=== PATIENT | male | born 1955 | race African-American/Black ===

== ENCOUNTER 2022-11-02 06:07 | Inpatient (IN) ==
--- NOTE | 2022-10-27 16:00 | XRay Report ---
INDICATION: preop TECHNIQUE: PA and lateral upright chest x-ray COMPARISON: Previous chest x-rays dated 09/05/2022, 04/08/2022, 09/09/2019 FINDINGS: Elevated right hemidiaphragm is stable. Mild bibasilar parenchymal densities consistent with chronic scarring. No significant interval change since 09/09/2019 No acute parenchymal infiltrate. No evidence for pneumonia. Heart size and vascularity are normal. No pulmonary edema or pulmonary congestion IMPRESSION: 1. Mildly elevated right hemidiaphragm and bibasilar scarring 2. No acute abnormality 3. No interval change since 09/09/2019 Interpreted and Authenticated by: Gunner Saini 10/27/22
[2022-10-27 18:32] LABS: Basophils # (Auto) 0.06 K/mcL (0.00-0.30); Basophils % (Auto) 0.4 % (0.0-2.0); Eosinophils # (Auto) 0.35 K/mcL (0.00-0.70); Eosinophils % (Auto) 2.6 % (0.0-7.0); Hematocrit 44.7 % (40.1-51.0); Lymphocytes # (Auto) 2.12 K/mcL (1.50-4.80); Lymphocytes % (Auto) 15.8 % (15.5-49.0); Mean Cell Volume 83.6 fL (80.0-100.0); Mean Corpuscular HGB Conc 31.3 g/dL (31.0-36.0); Mean Platelet Volume 9.6 fL (8.8-12.5); Monocytes # (Auto) 1.03 K/mcL (0.10-0.90); Monocytes % (Auto) 7.7 % (1.0-12.0); Neutrophils % (Auto) 73.2 % (38.0-78.0); Platelet Count 393 K/mcL (140-440); RBC 5.35 M/mcL (4.63-6.08); Red Cell Distribution Width 12.6 % (11.5-14.5); WBC 13.5 K/mcL (4.5-11.0)
[2022-10-27 19:01] LABS: ALT/SGPT 9 U/L (<40); AST/SGOT 22 U/L (<40); Albumin 4.1 gm/dL (3.2-5.2); Alkaline Phosphatase 58 U/L (39-117); Bilirubin,Total 0.3 mg/dL (0.1-1.0); Blood Urea Nitrogen 20 mg/dL (8-23); Calcium 10.4 mg/dL (8.6-10.4); Carbon Dioxide 30 mmol/L (22-30); Chloride 95 mmol/L (96-108); Globulin 4.2 gm/dL (2.2-3.7); Glomerular Filtration Rate 96; Glucose 128 mg/dL (70-105); Thyroid Stimulating Hormone 2.16 uIU/mL (0.27-5.01)
[2022-10-27 19:03] LABS: Prealbumin 17.7 mg/dL (20.0-40.0)
[2022-10-27 19:31] LABS: Estimated Average Glucose(eAG) 200 mg/dL; Hemoglobin A1C 8.6 % Hgb (4.0-6.0)
--- NOTE | 2022-10-31 08:27 | EKG ---
[facility] Test Date: 2022-10-27 Pat Name: Adam Winkler Department: [facility] Room: Gender: Male [place]: : 1955 Requested By: Deep Lazar Order Number: [id number] Reading MD: Gunner Avila M.D. Measurements Intervals [place] Rate: 102 P: 44 [place]: 181 QRS: -23 QRSD: 83 T: 38 QT: 313 QTc: 408 Interpretive Statements Sinus tachycardia BORDERLINE ST ELEVATION, ANTERIOR LEADS Electronically Signed On 10-31-2022 8:26:50 PDT by Gunner Avila M.D. /store/[email or web address]/[id number]
[~2022-11-02 06:07] MED LIST: VANCOMYCIN 1,500 MG in 0.9 % SODIUM CHLORIDE 500 ML IV SCH; cefTRIAXone 1 GM VIAL IV SCH
[2022-11-02] MEDS ORDERED: LIDOCAINE HCL/PF 100 MG/5 ML SYRINGE IV ONE (07:55)
[2022-11-02] MEDS ORDERED: KETAMINE 50 MG/ML Syringe (ANEST) IV ONE (07:55)
[2022-11-02] MEDS ORDERED: ONDANSETRON 4 MG/2 ML VIAL ONE (07:55)
[2022-11-02] MEDS ORDERED: GLYCOPYRROLATE 0.2 MG/ML VIAL IV ONE (07:55)
[2022-11-02] MEDS ORDERED: PROPOFOL 200 MG/20 ML VIAL IV ONE (07:55)
[2022-11-02] MEDS ORDERED: MIDAZOLAM 2 MG/2 ML VIAL ONE (07:55)
[2022-11-02] MEDS ORDERED: LACTATED RINGERS 250 ML IV PRN (07:58)
[2022-11-02] MEDS ORDERED: ACETAMINOPHEN 120 MG SUPP.RECT PR ONE (07:58)
[2022-11-02] MEDS ORDERED: IPRATROPIUM/ALBUTEROL 3 ML AMPUL.NEB NEB PRN ×2 (07:58→15:41)
[2022-11-02] MEDS ORDERED: METOPROLOL TARTRATE 5 MG/5 ML VIAL IV PRN (07:58)
[2022-11-02] MEDS ORDERED: NALOXONE HCL 0.4 MG/ML VIAL IV PRN (07:58)
[2022-11-02] MEDS ORDERED: ONDANSETRON 4 MG/2 ML VIAL IV PRN ×2 (07:58→15:41)
[2022-11-02] MEDS ORDERED: fentaNYL 100 MCG/2 ML VIAL IV PRN (07:58)
[2022-11-02] MEDS ORDERED: LABETALOL 5 MG/ML ML IV PRN (07:58)
[2022-11-02] MEDS ORDERED: METHOCARBAMOL 1,000 MG/10 ML VIAL IV PRN (07:58)
[2022-11-02] MEDS ORDERED: GENTAMICIN SULFATE 800 MG/20 ML VIAL IR ONE (08:00)
[2022-11-02] MEDS ORDERED: LACTATED RINGERS 1,000 ML IV SCH (08:00)
--- NOTE | 2022-11-02 09:20 | General Surgery Procedure Note ---
Date of procedure: Note initiated : 11/02/22 at 9:08 am Service Date, if different from initiated Date: [] Pre-op diagnosis: DFU LEFT posterior heel Stage 4, DFU LEFT great toe dorsal Stage 4, Post-op diagnosis: same Procedure: Excision debridement pulse lavage irrigation of LEFT posterior heel and great toe wounds. Avulsed / non viable toenails 1 and 2 toes debrided. Findings: Stage 4 LEFT posterior heel wound up to bone. 10 x 8 x 3 CM Stage 4 LEFT proximal dorsal great toe up to tendon 4 x 3 x 1.5 CM Anesthesia: MAC Surgeon: Deep Lazar Estimated blood loss: 20 Pathology: other (BONE biopsy LEFT posterior calcaneum ? Osteomyelitis . Bone for c/s. Left 1st toe tendon for c/s.) Description of procedure: Excision debridement of LEFT great toe and toenails 1st and 2nd toe. Excision debridement of LEFT posterior heel, calcaneum Condition: stable Disposition: PACU
[2022-11-02] MEDS: oxyCODONE/APAP 5/325MG TABLET PO PRN ×2 (13:49→20:51)
--- NOTE | 2022-11-02 14:29 | Operative Note ---
DATE OF OPERATION: 11/02/2022 PREOPERATIVE DIAGNOSES: 1. Diabetic foot ulcer, left posterior heel, stage IV. 2. Diabetic foot ulcer, left dorsal great toe proximal to the nail bed, dorsal aspect. POSTOPERATIVE DIAGNOSES: 1. Diabetic foot ulcer, left posterior heel, stage IV. 2. Diabetic foot ulcer, left dorsal great toe proximal to the nail bed, dorsal aspect. PROCEDURE: 1. Excision debridement with pulse lavage irrigation of the left posterior heel wound, bone biopsy and bone sample for culture and sensitivity. 2. Excision debridement of the wound, left dorsal great toe. Soft tissue around the nail bed sent for culture and sensitivity. His deformed toenails left first and second toes were debrided. SURGEON: Deep Lazar M.D. ANESTHESIA: MAC. SENIOR CLINICAL SAS PROGRAMMER: Elias Pacheco, CARBIDE OPERATOR student, and associate. ESTIMATED BLOOD LOSS: 20 mL. COUNTS: Count of swabs, instruments, and needles was reported to be correct. CONDITION: Operation was well tolerated. INDICATIONS FOR SURGERY: This is a 67-year-old gentleman with multiple comorbidities and a chronically-infected diabetic foot ulcer of left posterior heel and great toe dorsal aspect. After initial conservative management and failed outpatient treatment, he is now taken to the operating room for surgical debridement, deep tissue samples biopsies, and cultures. . PROCEDURE NOTE IN DETAIL: After obtaining informed consent, he was taken to the OR and anesthetized uneventfully in supine position using intravenous analgesics, anesthetics and nasopharyngeal airway. After successful induction of anesthesia, the left foot, ankle, leg were widely cleaned, prepped, and draped in the standard fashion. The hip was flexed at 80 degrees and the elevated leg and calf was supported by calf and leg rest. First, the posterior heel necrotic tissue and devitalized skin edges were sharply excised with pickup and Vides scissors. The deep wound over the calcaneal tuberosity was now explored and debrided with #7 sharp curette. This led to the underlying tuberosity of the bone. This was palpated and we used a bone biopsy needle to obtain specimens for bone biopsy to rule out osteomyelitis and additional specimens were obtained for culture and sensitivity. The wounds were copiously irrigated and washed with pulse lavage system using 3 liters of normal saline mixed with 50,000 units of bacitracin, 600 mg of clindamycin and 80 mg of gentamicin. After the debridement of posterior heel wound, the wound on the greater toe was sharply debrided and tissue samples were obtained for culture and sensitivity. Devitalized, fragmented, demarcated toenail was excised. Similarly, the demarcated, devitalized toenail of the second toe was also excised. Wounds were copiously irrigated, and dressings consisted of Xeroform gauze, Betadine gauze packing retained in place with 4 x 4 gauze, ABD pad, Kerlix bandage, Coban, and Kevin, respectively. Estimated blood loss was about 20 mL. Count of swabs, instruments and needles reported to be correct. Operation was well tolerated. I spoke with the patient's , Maki, telephone number [phone]. Updated her of patient's intraoperative findings and plan of care. He will be admitted to the med/surg floor for extended recovery to monitor the wound sites and for any postoperative bleeding. VD:angie Job ID: [id number] Doc ID: [id number] Deep Lazar MD MTDD
--- NOTE | 2022-11-02 15:40 | Internal Med History&Physical ---
HPI History of Present Illness Patient information: Note initiated : 11/02/22 at 3:32 pm Service Date, if different from initiated Date: [] Patient: Adam Winkler a 67 y/o M admitted on for surgical Debridement, Pulse Lavage Irrigation, . Chief Complaint: [] History of present illness: Mr. Winkler is a 67 year old M Presents today after surgical debridement of left diabetic foot wound/ulcer stage IV and left great toe. This patient is been following up in wound care with Dewey Fuentes for about a year and presented today for Dr. Lazar to do a debridement and bone culture as it is felt he has osteomyelitis. Dr. Lazar requested admission for further IV antibiotics for osteomyelitis. Patient denies fevers or chills. Pain updated labs. Patient has history of diabetes with neuropathy history of stroke chronic pain. He was recently started on oxygen at night and has felt that he probably has obstructive sleep apnea but he has not had a special sleep study yet. He wears 2 L of oxygen at night only not during the day. Review of Systems: Pertinent positives as above. Denies headache/fever/chills/nausea/vomiting/chest or abdominal pain/cough/dyspnea/diarrhea. Remaining 10 point review system reviewed negative PHYSICAL EXAM General: Alert, Awake, No acute Distress Eyes/N/T: EOMI, no scleral icterus, PERRL, Head/Neck: neck supple, full ROM, normocephalic atraumatic CV: RRR, No murmurs, normal s1/s2 Pulm: Clear b/l, no wheezing/rhonchi/rales, no respiratory distress Abd: soft, nontender, +BS x4 Ext: no clubbing/cyanosis/edema, left foot in dressings Neuro: Alert, no focal deficits, moves all extremities, CN 2-12 grossly intact, sensations intact b/l upper/lower Psychiatric: Skin: warm/dry, normal color PFSH PFSH All Active Problems (Updated 04/21/22 @ 10:35 by Harper Pedraza) CVA (cerebral vascular accident) (Chronic) Hematuria (Chronic) TIA (transient ischemic attack) (Chronic) Dysuria (Chronic) Edema leg (Chronic) Diabetic neuropathy (Chronic) Diabetic foot (Chronic) Epidural fibrosis (Chronic) Chronic prescription opiate use (Chronic) Arachnoiditis (Chronic) Radiculopathy, lumbosacral region (Chronic) Radiculopathy of lumbar region (Chronic) Lumbar pain with radiation down both legs (Chronic) Intractable neuropathic pain of lumbosacral origin (Chronic) Type 2 diabetes mellitus without complications (Chronic) Other bacterial meningitis (Chronic) Chronic meningitis (Chronic) Chronic pain (Chronic) Other chronic pain (Chronic) Breakdown (mechanical) of implanted electronic neurostimulator, generator, initial encounter (Chronic) Medical History (Updated 04/21/22 @ 10:35 by Harper Pedraza) Arachnoiditis Breakdown (mechanical) of implanted electronic neurostimulator, generator, initial encounter Chronic meningitis Chronic pain With Intrathecal Pump in Place Chronic prescription opiate use CVA (cerebral vascular accident) Diabetic foot Diabetic neuropathy Dysuria Edema leg Epidural fibrosis Hematuria Intractable neuropathic pain of lumbosacral origin Lumbar pain with radiation down both legs Other bacterial meningitis Other chronic pain Radiculopathy of lumbar region Radiculopathy, lumbosacral region TIA (transient ischemic attack) Type 2 diabetes mellitus without complications Surgical History History of surgery Implant / replace [employer] pump w/sed 09/10/2019 Family History Unknown No pertinent family history Social History smoking status: Current every day smoker MEDS/ALLERGIES Home Medications and Allergies Home Medications Medication Instructions Recorded Confirmed Type insulin glargine 100 unit/mL 50 unit subcut BID 04/14/20 11/02/22 History subcutaneous solution (Lantus U-100 Insulin) metformin 1,000 mg tablet 500 mg PO BID 04/14/20 11/02/22 History clopidogrel 75 mg tablet (Plavix) 75 mg PO QDAY 09/20/21 11/02/22 History cetirizine 10 mg tablet (Aller-Bhavesh) 20 mg PO HS 04/08/22 11/02/22 History pravastatin 20 mg tablet 20 mg PO QDAY 04/08/22 11/02/22 History naloxone 4 mg/actuation nasal 4 mg intranasal Q2M #2 ea 06/02/22 11/02/22 Rx spray (Narcan) tapentadol 50 mg tablet (Nucynta) 50 - 100 mg PO Q4H PRN pain #220 08/10/22 11/02/22 Rx tabs aspirin 81 mg tablet,delayed 81 mg PO QDAY 10/27/22 11/02/22 History release docusate sodium 100 mg capsule 100 mg PO QDAY 10/27/22 11/02/22 History Allergies Allergy/AdvReac Type Severity Reaction Status Date / Time aspirin AdvReac Mild Gastrointestinal Verified 11/02/22 06:27 Upset diazepam [From Valium] AdvReac Mild Combative, Verified 11/02/22 06:27 Hallucinations lorazepam [From Ativan] AdvReac Mild Confusion Verified 11/02/22 06:27 and Agitation Varenicline [From Chantix] AdvReac Mild Confusion Verified 11/02/22 06:27 and Agitation EXAM Constitutional Vitals: Temp Pulse Resp BP Pulse Ox O2 Del Method O2 Flow Rate 97.2 F 103 H 10 L 138/88 87 L Room Air, Nasal Cannula 2 11/02/22 09:25 11/02/22 09:25 11/02/22 09:25 11/02/22 09:25 11/02/22 09:47 11/02/22 09:47 11/02/22 09:47 A/P Narrative A/P Narrative: A: *Left heel diabetic wound/osteomyelitis: *DM w/neuropathy: -a1c *h/o CVA: on asa/plavix *HLD: *Chronic pain: Follows with pain clinic * P: -IV Rocephin/Vanco, mrsa screen (+) -pending surgical cultures -check 's -Dr. Davis for wound care -Check CBC and chemistry panel -cont asa/plavix/statin -ssi -check a1c -pt/ot -CM for placement needs -ppx: lovenox Time Spent With Patient Time: Total time spent is greater than 50% in coordination of care (as documented) at patient's floor/unit and/or counseling patient: Initial: Total time with patient: 55 - 74 minutes
[2022-11-02] MEDS ORDERED: DEXTROSE 31 GM ORAL.SUSP PO PRN (15:41)
[2022-11-02] MEDS ORDERED: DEXTROSE 50% 50 ML VIAL IV PRN (15:41)
[2022-11-02] MEDS ORDERED: SENNOSIDES 1 TABLET PO PRN (15:41)
[2022-11-02] MEDS ORDERED: POTASSIUM CHLORIDE 40 MEQ in DEXTROSE 5% IN WATER 500 ML IV PRN (15:41)
[2022-11-02] MEDS ORDERED: ACETAMINOPHEN 325 MG TABLET PO PRN (15:41)
[2022-11-02] MEDS ORDERED: POLYETHYLENE GLYCOL 3350 17 GM PACKET PO PRN (15:41)
[2022-11-02] MEDS ORDERED: POTASSIUM CHLORIDE 20 MEQ TABLET PO PRN ×2 (15:41)
[2022-11-02] MEDS ORDERED: MAGNESIUM SULFATE 2 GM/50 ML BAG IV PRN (15:41)
[2022-11-02] MEDS ORDERED: VANCOMYCIN PER PHARMACY IV SCH (15:41)
[2022-11-02] MEDS ORDERED: cefTRIAXone 2 GM in DEXTROSE 5% IN WATER 50 ML IV SCH (15:45)
[2022-11-02] MEDS ORDERED: cefTRIAXone 1 GM VIAL IV SCH (16:00)
--- NOTE | 2022-11-02 16:40 | General Surgery Progress Note ---
SUBJECTIVE Subjective Patient information: Note initiated : 11/02/22 at 4:27 pm Service Date, if different from initiated Date: [] Patient: Adam Winkler 67 y/o M admitted on 11/02/22 for surgical Debridement, Pulse Lavage Irrigation, . Chief Complaint: [] Additional PMFSH (Level 3 Only): Examined patient after surgery. Checked for post opbleeding. Constitutional Vitals: Vital Signs Temp Pulse Resp BP Pulse Ox O2 Del Method O2 Flow Rate 97.2 F 103 H 10 L 138/88 87 L Room Air, Nasal Cannula 2 11/02/22 09:25 11/02/22 09:25 11/02/22 09:25 11/02/22 09:25 11/02/22 09:47 11/02/22 09:47 11/02/22 09:47 Period Temp Pulse Resp BP Sys/Castaneda Pulse Ox O2 Del Method O2 Flow Rate Last 24 Hr 97.0 F-97.3 F 98-104 10-18 124-154/54-94 87-98 Nasal Cannula- Room Air, Nasal Cannula 0-2 Intake and Output 11/02/22 11/02/22 11/02/22 03:59 11:59 19:59 Intake Total 180 Output Total 360 Balance -180 Weight 220 lb Patient Weight 11/03/22 03:59 Weight 220 lb Intake & Output: Intake & Output 11/02/22 11/02/22 11/02/22 03:59 11:59 19:59 Intake Total 180 Output Total 360 Balance -180 Weight 220 lb Intake: Oral 180 Output: Void Amount 360 Exam: Recovered well from anesthesia and surgery. Dressings of LEFT foot and heel are dry and clean. Patient has stage 4 PU Left posterior heel / great toe. Wound extends to bone of heel and tendon of great toe. CLINICAL diagnosis. Acute osteomyelitis of heel. CSSSI heel and toe. He is at risk for LEFT BKA amputation. NEEDS coordinated care for comorbidities Infectious Diseases Consult . Await Bone biopsy and cultures. A/P Narrative A/P Narrative: Assessment: LEFT posterior heel . ACUTE osteomyelitis. At risk for BKA LEFT great toe DFU Stage 4 Multiple comorbidities. NEEDS Infectious Diseases Consult PICC line IV antibiotics per ID. Discussed patient's situation at length with Blanca RN, Cherelle sales team member Met with patient and his Maki in person. Plan of Treatment: Plan: Change status to FULL admission. Transfer care under Hospitalist Physician. Dr. Mccarty. I will follow patient along with Hospitalist for wound care. Time Spent With Patient Time: Total time spent is greater than 50% in coordination of care (as documented) at patient's floor/unit and/or counseling patient: Subsequent: Total time with patient: Greater than or equal to 65 minutes
[2022-11-02 16:42] LABS: Erythrocyte Sedimentation Rate 96 mm/hr (0-20)
[2022-11-02 16:45] LABS: Basophils # (Auto) 0.04 K/mcL (0.00-0.30); Basophils % (Auto) 0.3 % (0.0-2.0); Eosinophils # (Auto) 0.56 K/mcL (0.00-0.70); Eosinophils % (Auto) 4.8 % (0.0-7.0); Hematocrit 43.8 % (40.1-51.0); Hemoglobin 13.5 g/dL (13.7-17.5); Lymphocytes # (Auto) 1.05 K/mcL (1.50-4.80); Lymphocytes % (Auto) 8.9 % (15.5-49.0); Mean Cell Volume 84.6 fL (80.0-100.0); Mean Corpuscular HGB Conc 30.8 g/dL (31.0-36.0); Mean Platelet Volume 9.6 fL (8.8-12.5); Monocytes # (Auto) 0.89 K/mcL (0.10-0.90); Monocytes % (Auto) 7.6 % (1.0-12.0); Neutrophils % (Auto) 78.1 % (38.0-78.0); Platelet Count 378 K/mcL (140-440); RBC 5.18 M/mcL (4.63-6.08); Red Cell Distribution Width 12.7 % (11.5-14.5); WBC 11.8 K/mcL (4.5-11.0)
[2022-11-02] MEDS: INSULIN LISPRO 1 UNIT/0.01 ML UNIT SQ SCH ×2 (16:59→20:53)
[2022-11-02 17:17] LABS: ALT/SGPT 13 U/L (<40); AST/SGOT 21 U/L (<40); Albumin 3.3 gm/dL (3.2-5.2); Albumin/Globulin Ratio 0.8 (1.0-2.3); Alkaline Phosphatase 58 U/L (39-117); Bilirubin,Direct < 0.2 mg/dL (0-0.3); Bilirubin,Total 0.3 mg/dL (0.1-1.0); Blood Urea Nitrogen 19 mg/dL (8-23); Calcium 9.1 mg/dL (8.6-10.4); Carbon Dioxide 27 mmol/L (22-30); Chloride 97 mmol/L (96-108); Globulin 4.2 gm/dL (2.2-3.7); Glomerular Filtration Rate 91; Glucose 236 mg/dL (70-105); Lactate Dehydrogenase 183 U/L (135-225); Phosphorous 3.7 mg/dL (2.5-4.5); Triglycerides 177 mg/dL (<150); Uric Acid 6.4 mg/dL (2.5-8.0)
[2022-11-02 17:38] LABS: Estimated Average Glucose(eAG) 171 mg/dL; Hemoglobin A1C 7.6 % Hgb (4.0-6.0)
[2022-11-02] MEDS: DOCUSATE SODIUM 100 MG CAPSULE PO SCH (20:51)
[2022-11-02] MEDS: VANCOMYCIN 1,500 MG in 0.9 % SODIUM CHLORIDE 500 ML IV SCH (20:52)
[2022-11-02] MEDS: INSULIN GLARGINE, HUMAN 1 UNIT/0.01 ML SQ SCH (20:54)
[2022-11-02] MEDS: 0.9 % SODIUM CHLORIDE 10 ML SYRINGE IV SCH (20:55)
[2022-11-03] MEDS: morphine 4 MG/ML VIAL IV PRN ×3 (02:52→20:00)
[2022-11-03] MEDS: 0.9 % SODIUM CHLORIDE 10 ML SYRINGE IV SCH ×3 (05:54→21:02)
[2022-11-03 06:17] LABS: Basophils # (Auto) 0.06 K/mcL (0.00-0.30); Basophils % (Auto) 0.6 % (0.0-2.0); Eosinophils # (Auto) 0.79 K/mcL (0.00-0.70); Eosinophils % (Auto) 7.4 % (0.0-7.0); Hemoglobin 12.1 g/dL (13.7-17.5); Lymphocytes % (Auto) 13.2 % (15.5-49.0); Mean Cell Volume 83.7 fL (80.0-100.0); Mean Corpuscular HGB Conc 31.8 g/dL (31.0-36.0); Mean Platelet Volume 9.9 fL (8.8-12.5); Monocytes # (Auto) 0.86 K/mcL (0.10-0.90); Monocytes % (Auto) 8.1 % (1.0-12.0); Neutrophils % (Auto) 70.4 % (38.0-78.0); Platelet Count 362 K/mcL (140-440); RBC 4.54 M/mcL (4.63-6.08); Red Cell Distribution Width 12.7 % (11.5-14.5); WBC 10.6 K/mcL (4.5-11.0)
[2022-11-03 06:46] LABS: ALT/SGPT 11 U/L (<40); AST/SGOT 19 U/L (<40); Albumin 3.1 gm/dL (3.2-5.2); Albumin/Globulin Ratio 0.9 (1.0-2.3); Alkaline Phosphatase 50 U/L (39-117); Bilirubin,Direct < 0.2 mg/dL (0-0.3); Bilirubin,Total 0.2 mg/dL (0.1-1.0); Blood Urea Nitrogen 17 mg/dL (8-23); Calcium 8.6 mg/dL (8.6-10.4); Carbon Dioxide 29 mmol/L (22-30); Chloride 98 mmol/L (96-108); Globulin 3.5 gm/dL (2.2-3.7); Glomerular Filtration Rate 96; Glucose 189 mg/dL (70-105); Lactate Dehydrogenase 176 U/L (135-225); Phosphorous 3.2 mg/dL (2.5-4.5); Triglycerides 156 mg/dL (<150); Uric Acid 6.7 mg/dL (2.5-8.0)
[2022-11-03] MEDS: INSULIN LISPRO 1 UNIT/0.01 ML UNIT SQ SCH ×4 (07:41→21:02)
--- NOTE | 2022-11-03 08:20 | Internal Med Progress Note ---
SUBJECTIVE Subjective Patient information: Note initiated : 11/03/22 at 8:17 am Service Date, if different from initiated Date: [] Patient: Adam Winkler 67 y/o M admitted on 11/02/22 for surgical Debridement, Pulse Lavage Irrigation, . Chief Complaint: [] Interval history: History of present illness: Mr. Winkler is a 67 year old M Presents today after surgical debridement of left diabetic foot wound/ulcer stage IV and left great toe. This patient is been following up in wound care with Dewey Fuentes for about a year and presented today for Dr. Lazar to do a debridement and bone culture as it is felt he has osteomyelitis. Dr. Lazar requested admission for further IV antibiotics for osteomyelitis. Patient denies fevers or chills. Pain updated labs. Patient has history of diabetes with neuropathy history of stroke chronic pain. He was recently started on oxygen at night and has felt that he probably has obstructive sleep apnea but he has not had a special sleep study yet. He wears 2 L of oxygen at night only not during the day. 11/03 No overnight event or new complaints. Leukocytosis improving. Anemia present. Significantly elevated ESR 96. Dr. Davis said the wound went down to the bone. Review of Systems: Pertinent positives as above. Denies headache/fever/chills/nausea/vomiting/chest or abdominal pain/coug h/dyspnea/diarrhea. PHYSICAL EXAM General: Alert, Awake, No acute Distress Eyes/N/T: EOMI, no scleral icterus, Head/Neck: neck supple, full ROM, CV: RRR, No murmurs, Pulm: Clear b/l, no wheezing/rhonchi/rales, no respiratory distress Abd: soft, nontender, +BS x4 Ext: no clubbing/cyanosis/edema, left foot in dressings Neuro: Alert, no focal deficits, moves all extremities, , sensations intact b/l upper/lower Psychiatric: Skin: warm/dry, normal color Constitutional Vitals: Vital Signs Temp Pulse Resp BP Pulse Ox O2 Del Method O2 Flow Rate 98.4 F 95 H 18 151/87 94 Nasal Cannula 2 11/03/22 07:11 11/03/22 07:11 11/03/22 07:11 11/03/22 07:11 11/03/22 07:11 11/03/22 07:11 11/03/22 07:11 Period Temp Pulse Resp BP Sys/Castaneda Pulse Ox O2 Del Method O2 Flow Rate Last 24 Hr 97.2 F-99.3 F 85-104 10-18 119-154/68-94 87-98 Nasal Cannula- Room Air, Nasal Cannula 0-2 Intake and Output 11/02/22 11/03/22 11/03/22 19:59 03:59 11:59 Intake Total 420 1240 Output Total 660 300 Balance -240 940 Weight 100.743 kg Intake & Output: Intake & Output 11/02/22 11/03/22 11/03/22 19:59 03:59 11:59 Intake Total 420 1240 Output Total 660 300 Balance -240 940 Weight 100.743 kg Intake: IV 1000 Vancomycin 1,500 mg In Sodium 1000 Chloride 0.9% 500 ml @ 333.3 mls/hr IV PREOP [facility]INGO Rx#: [id number] Oral 420 240 Output: Void Amount 660 300 Other: Urine Appearance Clear Urine Color Yellow Urine Odor Normal # Voids 1 OBJ DATA Labs 11/03/22 05:09 11/03/22 05:09 Labs: Abnormal Lab Results 11/03/22 11/03/22 11/02/22 05:09 05:09 16:03 WBC RBC 4.54 L Hgb 12.1 L Hct 38.0 L MCHC Neut % (Auto) Lymph % (Auto) 13.2 L Eos % (Auto) 7.4 H Lymph # (Auto) 1.40 L Eos # (Auto) 0.79 H Absolute Neutrophils ESR Anion Gap 7.0 L Glucose 189 H 236 H Hemoglobin A1c 7.6 H C-Reactive Protein 4.80 H Albumin 3.1 L Globulin 4.2 H Albumin/Globulin Ratio 0.9 L 0.8 L Triglycerides 156 H 177 H 11/02/22 16:03 WBC 11.8 H RBC Hgb 13.5 L Hct MCHC 30.8 L Neut % (Auto) 78.1 H Lymph % (Auto) 8.9 L Eos % (Auto) Lymph # (Auto) 1.05 L Eos # (Auto) Absolute Neutrophils 9.20 H ESR 96 H Anion Gap Glucose Hemoglobin A1c C-Reactive Protein Albumin Globulin Albumin/Globulin Ratio Triglycerides Meds: Medications Acetaminophen (Acetaminophen 325 Mg Tablet) 650 mg PO Q6HP PRN; Protocol PRN Reason: Per Pain Protocol/Fever > 101 Albuterol/Ipratropium (Ipratropium/Albuterol 3 Ml Ampul.Neb) 3 ml NEB Q4HP PRN PRN Reason: Shortness Of Breath Aspirin (Aspirin 81 Mg Tab.Chew) 81 mg PO DAILY [facility] Atorvastatin Calcium (Atorvastatin 10 Mg Tablet) 5 mg PO DAILY [facility] Clopidogrel Bisulfate (Clopidogrel 75 Mg Tablet) 75 mg PO QDAY [facility] Dextrose (Dextrose 50% 50 Ml Vial) 0 ml IV UD PRN PRN Reason: Per Sliding Scale Diagnostic Test (Pha) (Accu-Chek 1 Each Strip) 1 each FS ACHS [facility] Last Admin: 11/03/22 07:40 Dose: 1 each Docusate Sodium (Docusate Sodium 100 Mg Capsule) 100 mg PO BID [facility] Last Admin: 11/02/22 20:51 Dose: 100 mg Enoxaparin Sodium (Enoxaparin 40 Mg/0.4 Ml Syringe) 40 mg SQ DAILY [facility] Glucose (Dextrose 31 Gm Oral.Susp) 15 gm PO PRN PRN PRN Reason: Hypoglycemia Potassium Chloride 40 meq/ (Dextrose) 520 mls @ 130 mls/hr IV UD PRN PRN Reason: Potassium < 3 Magnesium Sulfate (Magnesium Sulfate) 2 gm in 50 mls @ 50 mls/hr IV UD PRN PRN Reason: Magnesium </= 1.6 Ceftriaxone Sodium 2 gm/ (Dextrose) 50 mls @ 100 mls/hr IV Q24H [facility]; Protocol Vancomycin HCl 1,500 mg/ (Sodium Chloride) 500 mls @ 333.3 mls/hr IV Q12H [facility] Last Infusion: 11/02/22 23:11 Dose: Infused Insulin Glargine (Insulin Glargine, Human 1 Unit/0.01 Ml) 50 unit SQ BID [facility] Last Admin: 11/02/22 20:54 Dose: 50 units Insulin Human Lispro (Insulin Lispro 1 Unit/0.01 Ml Unit) 0 unit SQ ACHS [facility]; Protocol Last Admin: 11/03/22 07:41 Dose: 4 units Morphine Sulfate (Morphine 4 Mg/Ml Vial) 0 mg IV Q3HP PRN PRN Reason: Pain Last Admin: 11/03/22 02:52 Dose: 2 mg Ondansetron HCl (Ondansetron 4 Mg/2 Ml Vial) 4 mg IV Q4HP PRN PRN Reason: Nausea And Vomiting Oxycodone/Acetaminophen (Oxycodone/Apap 5/325mg Tablet) 1 - 2 tab PO Q6HP PRN; Protocol PRN Reason: Per Pain Protocol Last Admin: 11/02/22 20:51 Dose: 2 tab Polyethylene Glycol (Polyethylene Glycol 3350 17 Gm Packet) 17 gm PO DAILYP PRN PRN Reason: Constipation Potassium Chloride (Potassium Chloride 20 Meq Tablet) 40 meq PO UD PRN PRN Reason: Potssium is 3-3.5 Potassium Chloride (Potassium Chloride 20 Meq Tablet) 40 meq PO UD PRN PRN Reason: Potassium < 3 Senna (Sennosides 1 Tablet) 2 tab PO DAILYP PRN PRN Reason: Constipation Sodium Chloride (0.9 % Sodium Chloride 10 Ml Syringe) 10 ml IV Q8 [facility] Last Admin: 11/03/22 05:54 Dose: 10 ml Vancomycin HCl (Vancomycin Per Pharmacy) 1 order IV UD [facility]; Protocol A/P Narrative A/P Narrative: A: *Left heel diabetic wound/osteomyelitis: s/p surgical debridement and bone biopsy (11/02) -leukocytosis improved *DM w/neuropathy: -a1c 7.6 *h/o CVA: on asa/plavix *HLD: *Chronic pain: Follows with pain clinic *Anemia: P: -IV Rocephin/Vanco, mrsa screen (+), -pending surgical cultures and BC -ID consult for osteo -Dr. Young for wound care -cont asa/plavix/statin -ssi -pt/ot -CM for placement needs -ppx: lovenox Plan of Treatment: Plan: Change status to FULL admission. Transfer care under Hospitalist Physician. Dr. Mccarty. I will follow patient along with Hospitalist for wound care. Time Spent With Patient Time: Total time spent is greater than 50% in coordination of care (as documented) at patient's floor/unit and/or counseling patient: Subsequent: Total time with patient: 35 - 49 minutes QUALITY VTE Deep Vein Thrombosis/Pulmonary Embolism Present on Admission: No
[2022-11-03] MEDS: ASPIRIN 81 MG TAB.CHEW PO SCH (08:41)
[2022-11-03] MEDS: CLOPIDOGREL 75 MG TABLET PO SCH (08:41)
[2022-11-03] MEDS: ATORVASTATIN 10 MG TABLET PO SCH (08:41)
[2022-11-03] MEDS: DOCUSATE SODIUM 100 MG CAPSULE PO SCH ×2 (08:42→21:02)
[2022-11-03] MEDS: INSULIN GLARGINE, HUMAN 1 UNIT/0.01 ML SQ SCH ×2 (08:42→21:01)
[2022-11-03] MEDS: ENOXAPARIN 40 MG/0.4 ML SYRINGE SQ SCH (08:42)
[2022-11-03] MEDS: cefTRIAXone 2 GM in DEXTROSE 5% IN WATER 50 ML IV SCH (08:42)
[2022-11-03] MEDS: VANCOMYCIN 1,500 MG in 0.9 % SODIUM CHLORIDE 500 ML IV SCH ×2 (09:50→21:44)
[2022-11-03] MEDS: GENTAMICIN SULFATE 40 MG, CLINDAMYCIN 300 MG in SODIUM CHLORIDE IRRIG SOLUTION 500 ML IRR SCH (11:00)
--- NOTE | 2022-11-03 15:44 | General Surgery Progress Note ---
SUBJECTIVE Subjective Patient information: Note initiated : 11/03/22 at 3:37 pm Service Date, if different from initiated Date: [] Patient: Adam Winkler 67 y/o M admitted on 11/02/22 for surgical Debridement, Pulse Lavage Irrigation, . Chief Complaint: [] Additional PMFSH (Level 3 Only): Saw patient earlier this morning on rounds with Connie Goodwin box car loader Nurse Business Development Sales Executive. Patient feeling better sitting up by edge of bed. Constitutional Vitals: Vital Signs Temp Pulse Resp BP Pulse Ox O2 Del Method O2 Flow Rate 98.4 F 96 H 18 142/89 90 Room Air 2 11/03/22 12:00 11/03/22 12:00 11/03/22 12:00 11/03/22 12:00 11/03/22 12:00 11/03/22 12:00 11/03/22 07:11 Period Temp Pulse Resp BP Sys/Castaneda Pulse Ox O2 Del Method O2 Flow Rate Last 24 Hr 98.4 F-99.3 F 94-103 18-18 119-151/68-89 90-97 Nasal Cannula- Room Air 2-2 Intake and Output 11/03/22 11/03/22 11/03/22 03:59 11:59 19:59 Intake Total 1240 550 240 Output Total 300 Balance 940 550 240 Intake & Output: Intake & Output 11/03/22 11/03/22 11/03/22 03:59 11:59 19:59 Intake Total 1240 550 240 Output Total 300 Balance 940 550 240 Intake: IV 1000 550 Vancomycin 1,500 mg In Sodium 1000 500 Chloride 0.9% 500 ml @ 333.3 mls/hr IV Q12H [facility] Rx#: [id number] Rocephin 2 gm In Dextrose 5% in 50 Water 50 ml @ 100 mls/hr IV Q24H [facility] Rx#:[id number] Oral 240 240 Output: Void Amount 300 Other: Meal Breakfast Percent of Meal Consumed 75% Urine Appearance Clear Urine Color Yellow Urine Odor Normal # Voids 1 Exam: AVSS. No changes VIKY. Lab results reviewed. LEFT leg wound care plan discussed with nursing staff. Written orders of wound care and dressings were reviewed. Biopsy and Culture reports are pending. A/P Narrative A/P Narrative: Assessment: Progressing well after surgery. LEFT posterior heel Stage 4 wound (Bone) LEFT dorsal 1st toe wound Stage 4 (tendon). Plan of Treatment: Plan: Await culture and Biopsy results. Await Infectious Diseases consult. MIST treatment with VASHE. Later GCB dressings. NWB Left leg and foot. Change status to FULL admission. Transfer care under Hospitalist Physician. Dr. Mccarty. I will follow patient along with Hospitalist for wound care. Time Spent With Patient Time: Total time spent is greater than 50% in coordination of care (as documented) at patient's floor/unit and/or counseling patient: Initial: Total time with patient: Less than 40 minutes
--- NOTE | 2022-11-03 16:21 | Infectious Disease Consult ---
Telemedicine Intake Start Time: 04:30 (PM PST ) End Time: 05:10 Consent for assessment and treatment to occur via virtual technology obtained from: Patient Location of Provider: Other ([place] ) Patient location: Med/Surg Unit HPI Date of Consult Consult Date: 11/03/22 Requesting physician: Santiago Mccarty Primary Care Provider: Jeferson Nassar Consult Narrative Patient Information: Note initiated : 11/03/22 at 4:20 pm Service Date, if different from initiated Date: [] This is a 67-year-old male past medical history DMT2, HTN, CVA admitted on 11/02 due to chronic left foot diabetic ulcer in the heel and great toe after undergoing debridement by software specialist. As per patient he has had a chronic left foot wound for the past year since treated several times with different courses of antibiotics. Most recent treatment was approximately 1.5 months ago he cannot recall the name of the antibiotics, but in chart review tamica garcia was seen at urgent care back in 07/21 and was treated with doxycycline and Augmentin. As per chart, he had MRSA and Pseudomonas in wound. Upon admission, pt was afebrile (t 99.3F), tachycardic (103bpm), rest of vital signs stable. On labs, patient had mild leukocytosis (11.8K > preadmission 13k), increased inflammatory markers (CRP 4.80, ESR 96). Preliminary wound cx results gram stain no wbcs, many to rare gpc, and few gnb. Patient now started on IV vancomycin plus ceftriaxone, bone biopsy and bone culture are currently pending. Now consulted to ID service for further recommendations. Denies fever, chills, malaise, nausea, vomit, diarrhea, dizziness, LOC. Chief complaint: nonhealing wound, OM cc:: CC: Deep Lazar MD Constitutional Constitutional: Present as per HPI EENT Eyes: Present as per HPI Musculoskeletal Musculoskeletal: Present as per HPI Integumentary Integumentary: Present wounds (nonhealing left heel and great toe wounds for 1 year) PFSH PFSH All Active Problems (Updated 11/03/22 @ 17:02 by Nany Diaz MD) Decubitus ulcer of left foot, stage 4 (Acute) CVA (cerebral vascular accident) (Chronic) Hematuria (Chronic) TIA (transient ischemic attack) (Chronic) Dysuria (Chronic) Edema leg (Chronic) Diabetic neuropathy (Chronic) Diabetic foot (Chronic) Epidural fibrosis (Chronic) Chronic prescription opiate use (Chronic) Arachnoiditis (Chronic) Radiculopathy, lumbosacral region (Chronic) Radiculopathy of lumbar region (Chronic) Lumbar pain with radiation down both legs (Chronic) Intractable neuropathic pain of lumbosacral origin (Chronic) Type 2 diabetes mellitus without complications (Chronic) Other bacterial meningitis (Chronic) Chronic meningitis (Chronic) Chronic pain (Chronic) Other chronic pain (Chronic) Breakdown (mechanical) of implanted electronic neurostimulator, generator, initial encounter (Chronic) Medical History (Updated 11/03/22 @ 17:02 by Nany Diaz MD) Arachnoiditis Breakdown (mechanical) of implanted electronic neurostimulator, generator, initial encounter Chronic meningitis Chronic pain With Intrathecal Pump in Place Chronic prescription opiate use CVA (cerebral vascular accident) Diabetic foot Diabetic neuropathy Dysuria Edema leg Epidural fibrosis Hematuria Intractable neuropathic pain of lumbosacral origin Lumbar pain with radiation down both legs Other bacterial meningitis Other chronic pain Radiculopathy of lumbar region Radiculopathy, lumbosacral region TIA (transient ischemic attack) Type 2 diabetes mellitus without complications Surgical History History of surgery Implant / replace [employer] pump w/sed 09/10/2019 Family History Unknown No pertinent family history Social History smoking status: Current every day smoker MEDS/ALLERGIES Home Medications and Allergies Home Medications Medication Instructions Recorded Confirmed Type insulin glargine 100 unit/mL 50 unit subcut BID 04/14/20 11/02/22 History subcutaneous solution (Lantus U-100 Insulin) metformin 1,000 mg tablet 500 mg PO BID 04/14/20 11/02/22 History clopidogrel 75 mg tablet (Plavix) 75 mg PO QDAY 09/20/21 11/02/22 History cetirizine 10 mg tablet (Aller-Bhavesh) 20 mg PO HS 04/08/22 11/02/22 History pravastatin 20 mg tablet 20 mg PO QDAY 04/08/22 11/02/22 History naloxone 4 mg/actuation nasal 4 mg intranasal Q2M #2 ea 06/02/22 11/02/22 Rx spray (Narcan) tapentadol 50 mg tablet (Nucynta) 50 - 100 mg PO Q4H PRN pain #220 08/10/22 11/02/22 Rx tabs aspirin 81 mg tablet,delayed 81 mg PO QDAY 10/27/22 11/02/22 History release docusate sodium 100 mg capsule 100 mg PO QDAY 10/27/22 11/02/22 History Allergies Allergy/AdvReac Type Severity Reaction Status Date / Time aspirin AdvReac Mild Gastrointestinal Verified 11/02/22 06:27 Upset diazepam [From Valium] AdvReac Mild Combative, Verified 11/02/22 06:27 Hallucinations lorazepam [From Ativan] AdvReac Mild Confusion Verified 11/02/22 06:27 and Agitation Varenicline [From Chantix] AdvReac Mild Confusion Verified 11/02/22 06:27 and Agitation Physical Examination Vital Signs Vital signs: Temp Pulse Resp BP Pulse Ox O2 Del Method O2 Flow Rate 98.8 F 98 H 18 105/68 94 Room Air 2 11/03/22 15:46 11/03/22 15:46 11/03/22 15:46 11/03/22 15:46 11/03/22 15:46 11/03/22 15:46 11/03/22 07:11 Constitutional General appearance: no acute distress and alert EENT Eyes pulmonary: nonicteric ENT: oropharynx moist Neck: supple Respiratory Effort: normal Gastrointestinal Gastrointestinal: soft and non-tender Extremities Extremities: other (left foot bandaged) Neurologic Neurological: normal mental status Psychiatric Psychiatric: mood appropriate and affect normal Results Laboratory Findings 11/03/22 05:09 11/03/22 05:09 Abnormal lab findings: Abnormal Labs 10/27/22 10/27/22 10/27/22 15:21 15:21 15:21 WBC 13.5 H RBC Hgb Hct MCHC Neut % (Auto) Lymph % (Auto) Eos % (Auto) Lymph # (Auto) [place] # (Auto) 1.03 H Eos # (Auto) Absolute Neutrophils 9.85 H ESR APTT 37.9 H Chloride 95 L Anion Gap Glucose 128 H Hemoglobin A1c 8.6 H C-Reactive Protein 4.70 H Albumin Globulin 4.2 H Albumin/Globulin Ratio Prealbumin 17.7 L Triglycerides Procalcitonin 10/27/22 11/02/22 11/02/22 15:21 16:03 16:03 WBC 11.8 H RBC Hgb 13.5 L Hct MCHC 30.8 L Neut % (Auto) 78.1 H Lymph % (Auto) 8.9 L Eos % (Auto) Lymph # (Auto) 1.05 L [place] # (Auto) Eos # (Auto) Absolute Neutrophils 9.20 H ESR 96 H APTT Chloride Anion Gap Glucose 236 H Hemoglobin A1c 7.6 H C-Reactive Protein 4.80 H Albumin Globulin 4.2 H Albumin/Globulin Ratio 0.8 L Prealbumin Triglycerides 177 H Procalcitonin 0.11 H 11/03/22 11/03/22 05:09 05:09 WBC RBC 4.54 L Hgb 12.1 L Hct 38.0 L MCHC Neut % (Auto) Lymph % (Auto) 13.2 L Eos % (Auto) 7.4 H Lymph # (Auto) 1.40 L [place] # (Auto) Eos # (Auto) 0.79 H Absolute Neutrophils ESR APTT Chloride Anion Gap 7.0 L Glucose 189 H Hemoglobin A1c C-Reactive Protein Albumin 3.1 L Globulin Albumin/Globulin Ratio 0.9 L Prealbumin Triglycerides 156 H Procalcitonin Microbiology: Microbiology 11/02/22 08:45 Toe - First Gram Stain - Preliminary 11/02/22 08:45 Toe - First Tissue Culture - Final 11/02/22 08:40 Bone - Left Gram Stain - Preliminary 11/02/22 08:40 Bone - Left Tissue Culture - Final 11/02/22 16:04 Blood Blood Culture - Preliminary 11/02/22 16:03 Blood Blood Culture - Preliminary 11/02/22 08:40 Bone Anaerobic Culture - Final 11/02/22 08:40 Bone Wound Culture - Final 11/02/22 08:45 Bone Anaerobic Culture - Final 11/02/22 08:45 Bone Wound Culture - Final 10/27/22 15:22 Nose MRSA (PCR) - Final A/P Assessment and plan (1) Decubitus ulcer of left foot, stage 4: Assessment and plan: This is a 67 y/o male pmhx DMT2, HTN, CVA admitted on 11/02 due to chronic left foot diabetic ulcer in the heel and great toe for 1 yea after undergoing debridement by software specialist. Prelim wound cx gram stain no wbcs, many to rare gpc, and few gnb. Plan: - agree with Vancomycin 1500mg IV q12hrs for now, monitor vanco trough 30mins before 4th dose - agree with Ceftriaxone 2g IV daily for now - follow up OR bone cx - follow up OR bone path - will tailor therapy based on results - follow up BCx results; if no growth at 48hrs please place PICC line - discussed with patient [place] [facility] IV therapy of 6 weeks based and tailoring of antibiotic therapy based on results - please contact me when patient gets change in wound dressing to assess the foot - ID will follow up for further recommendations Status: Acute Time Spent With Patient Time: Total time spent is greater than 50% in coordination of care (as documented) at patient's floor/unit and/or counseling patient: Initial: Total time with patient: 40 - 54 minutes Total Critical Care Time: 40 (mins ) Attestation: Nany Diaz MD [phone]
[2022-11-03] MEDS: MUPIROCIN OINT 2% 22GM NARES SCH (21:01)
[2022-11-04] MEDS: morphine 4 MG/ML VIAL IV PRN ×5 (02:24→20:16)
[2022-11-04] MEDS: 0.9 % SODIUM CHLORIDE 10 ML SYRINGE IV SCH ×5 (06:15→22:23)
--- NOTE | 2022-11-04 07:33 | Internal Med Progress Note ---
SUBJECTIVE Subjective Patient information: Note initiated : 11/04/22 at 7:32 am Service Date, if different from initiated Date: [] Patient: Adam Winkler 67 y/o M admitted on 11/02/22 for surgical Debridement, Pulse Lavage Irrigation, . Chief Complaint: [] Interval history: History of present illness: Mr. Winkler is a 67 year old M Presents today after surgical debridement of left diabetic foot wound/ulcer stage IV and left great toe. This patient is been following up in wound care with [facility] Fuentes for about a year and presented today for Dr. Lazar to do a debridement and bone culture as it is felt he has osteomyelitis. Dr. Lazar requested admission for further IV antibiotics for osteomyelitis. Patient denies fevers or chills. Pain updated labs. Patient has history of diabetes with neuropathy history of stroke chronic pain. He was recently started on oxygen at night and has felt that he probably has obstructive sleep apnea but he has not had a special sleep study yet. He wears 2 L of oxygen at night only not during the day. 11/03 No overnight event or new complaints. Leukocytosis improving. Anemia present. Significantly elevated ESR 96. Dr. Davis said the wound went down to the bone. 11/04 Patient feeling well today. No overnight event or new complaints. Awaiting surgical wound and bone cultures. ID following and continue current antibiotics until cultures resulted. Review of Systems: Pertinent positives as above. Denies headache/fever/chills/nausea/vomiting/chest or abdominal pain/cough/dyspnea/d iarrhea. PHYSICAL EXAM General: Alert, Awake, No acute Distress Eyes/N/T: EOMI, no scleral icterus, Head/Neck: neck supple, full ROM, CV: RRR, No murmurs, Pulm: Clear b/l, no wheezing/rhonchi/rales, no respiratory distress Abd: soft, nontender, +BS x4 Ext: no clubbing/cyanosis/edema, left foot in dressings Neuro: Alert, no focal deficits, moves all extremities, , sensations intact b/l upper/lower Psychiatric: Skin: warm/dry, normal color Constitutional Vitals: Vital Signs Temp Pulse Resp BP Pulse Ox O2 Del Method O2 Flow Rate 98.8 F 88 18 129/73 96 Nasal Cannula 2 11/04/22 03:57 11/04/22 03:57 11/04/22 03:57 11/04/22 03:57 11/04/22 03:57 11/04/22 03:57 11/04/22 03:57 Period Temp Pulse Resp BP Sys/Castaneda Pulse Ox O2 Del Method O2 Flow Rate Last 24 Hr 98.4 F-98.8 F 88-98 18-18 105-142/68-89 90-96 Nasal Cannula- Room Air 2-2 Intake and Output 11/03/22 11/04/22 11/04/22 19:59 03:59 11:59 Intake Total 480 1080 Output Total 400 700 Balance 80 380 Weight 100.743 kg 104.099 kg Intake & Output: Intake & Output 11/03/22 11/04/22 11/04/22 19:59 03:59 11:59 Intake Total 480 1080 Output Total 400 700 Balance 80 380 Weight 100.743 kg 104.099 kg Intake: IV 500 Vancomycin 1,500 mg In Sodium 500 Chloride 0.9% 500 ml @ 333.3 mls/hr IV Q12H [facility] Rx#: [id number] Oral 480 580 Output: Void Amount 400 700 Other: Meal Breakfast Percent of Meal Consumed 75% Urine Appearance Clear Clear Urine Color Yellow Yellow Urine Odor Normal # Voids 1 OBJ DATA Labs 11/03/22 05:09 11/03/22 05:09 Labs: Abnormal Lab Results 11/03/22 11/03/22 11/02/22 05:09 05:09 16:03 WBC RBC 4.54 L Hgb 12.1 L Hct 38.0 L MCHC Neut % (Auto) Lymph % (Auto) 13.2 L Eos % (Auto) 7.4 H Lymph # (Auto) 1.40 L Eos # (Auto) 0.79 H Absolute Neutrophils ESR Anion Gap 7.0 L Glucose 189 H 236 H Hemoglobin A1c 7.6 H C-Reactive Protein 4.80 H Albumin 3.1 L Globulin 4.2 H Albumin/Globulin Ratio 0.9 L 0.8 L Triglycerides 156 H 177 H 11/02/22 16:03 WBC 11.8 H RBC Hgb 13.5 L Hct MCHC 30.8 L Neut % (Auto) 78.1 H Lymph % (Auto) 8.9 L Eos % (Auto) Lymph # (Auto) 1.05 L Eos # (Auto) Absolute Neutrophils 9.20 H ESR 96 H Anion Gap Glucose Hemoglobin A1c C-Reactive Protein Albumin Globulin Albumin/Globulin Ratio Triglycerides Meds: Medications Acetaminophen (Acetaminophen 325 Mg Tablet) 650 mg PO Q6HP PRN; Protocol PRN Reason: Per Pain Protocol/Fever > 101 Albuterol/Ipratropium (Ipratropium/Albuterol 3 Ml Ampul.Neb) 3 ml NEB Q4HP PRN PRN Reason: Shortness Of Breath Aspirin (Aspirin 81 Mg Tab.Chew) 81 mg PO DAILY [facility] Last Admin: 11/03/22 08:41 Dose: 81 mg Atorvastatin Calcium (Atorvastatin 10 Mg Tablet) 5 mg PO DAILY [facility] Last Admin: 11/03/22 08:41 Dose: 5 mg Clopidogrel Bisulfate (Clopidogrel 75 Mg Tablet) 75 mg PO QDAY [facility] Last Admin: 11/03/22 08:41 Dose: 75 mg Dextrose (Dextrose 50% 50 Ml Vial) 0 ml IV UD PRN PRN Reason: Per Sliding Scale Diagnostic Test (Pha) (Accu-Chek 1 Each Strip) 1 each FS ACHS [facility] Last Admin: 11/03/22 20:39 Dose: 1 each Docusate Sodium (Docusate Sodium 100 Mg Capsule) 100 mg PO BID [facility] Last Admin: 11/03/22 21:02 Dose: 100 mg Enoxaparin Sodium (Enoxaparin 40 Mg/0.4 Ml Syringe) 40 mg SQ DAILY [facility] Last Admin: 11/03/22 08:42 Dose: 40 mg Glucose (Dextrose 31 Gm Oral.Susp) 15 gm PO PRN PRN PRN Reason: Hypoglycemia Potassium Chloride 40 meq/ (Dextrose) 520 mls @ 130 mls/hr IV UD PRN PRN Reason: Potassium < 3 Magnesium Sulfate (Magnesium Sulfate) 2 gm in 50 mls @ 50 mls/hr IV UD PRN PRN Reason: Magnesium </= 1.6 Ceftriaxone Sodium 2 gm/ (Dextrose) 50 mls @ 100 mls/hr IV Q24H [facility]; Protocol Last Infusion: 11/03/22 09:50 Dose: Infused Vancomycin HCl 1,500 mg/ (Sodium Chloride) 500 mls @ 333.3 mls/hr IV Q12H [facility] Last Infusion: 11/03/22 23:15 Dose: Infused Gentamicin Sulfate 40 mg/Clindamycin Phosphate 300 mg/Sodium Chloride 503 mls @ 0 mls/hr IRR Q24H [facility] Last Admin: 11/03/22 11:00 Dose: 50 mls/hr Insulin Glargine (Insulin Glargine, Human 1 Unit/0.01 Ml) 50 unit SQ BID [facility] Last Admin: 11/03/22 21:01 Dose: 50 units Insulin Human Lispro (Insulin Lispro 1 Unit/0.01 Ml Unit) 0 unit SQ ACHS [facility]; Protocol Last Admin: 11/03/22 21:02 Dose: 2 units Morphine Sulfate (Morphine 4 Mg/Ml Vial) 0 mg IV Q3HP PRN PRN Reason: Pain Last Admin: 11/04/22 02:24 Dose: 2 mg Mupirocin (Mupirocin Oint 2% 22gm) 1 dose NARES BID [facility] Last Admin: 11/03/22 21:01 Dose: 1 dose Ondansetron HCl (Ondansetron 4 Mg/2 Ml Vial) 4 mg IV Q4HP PRN PRN Reason: Nausea And Vomiting Oxycodone/Acetaminophen (Oxycodone/Apap 5/325mg Tablet) 1 - 2 tab PO Q6HP PRN; Protocol PRN Reason: Per Pain Protocol Last Admin: 11/02/22 20:51 Dose: 2 tab Polyethylene Glycol (Polyethylene Glycol 3350 17 Gm Packet) 17 gm PO DAILYP PRN PRN Reason: Constipation Potassium Chloride (Potassium Chloride 20 Meq Tablet) 40 meq PO UD PRN PRN Reason: Potssium is 3-3.5 Potassium Chloride (Potassium Chloride 20 Meq Tablet) 40 meq PO UD PRN PRN Reason: Potassium < 3 Senna (Sennosides 1 Tablet) 2 tab PO DAILYP PRN PRN Reason: Constipation Sodium Chloride (0.9 % Sodium Chloride 10 Ml Syringe) 10 ml IV Q8 [facility] Last Admin: 11/04/22 06:15 Dose: 10 ml Vancomycin HCl (Vancomycin Per Pharmacy) 1 order IV UD [facility]; Protocol A/P Narrative A/P Narrative: A: *Left heel diabetic wound/osteomyelitis: s/p surgical debridement and bone biopsy (11/02) -leukocytosis improved *DM w/neuropathy: -a1c 7.6 *h/o CVA: on asa/plavix *HLD: *Chronic pain: Follows with pain clinic *Anemia: P: -IV Rocephin/Vanco, mrsa screen (+), -pending surgical cultures and BC -will need PICC -ID consult for biancao -Dr. Young for wound care -cont asa/plavix/statin -ssi -pt/ot -CM for placement needs -ppx: lovenox Time Spent With Patient Time: Total time spent is greater than 50% in coordination of care (as documented) at patient's floor/unit and/or counseling patient: Subsequent: Total time with patient: 35 - 49 minutes QUALITY VTE Deep Vein Thrombosis/Pulmonary Embolism Present on Admission: No
[2022-11-04] MEDS: INSULIN GLARGINE, HUMAN 1 UNIT/0.01 ML SQ SCH ×2 (08:55→20:17)
[2022-11-04] MEDS: MUPIROCIN OINT 2% 22GM NARES SCH ×2 (08:55→20:16)
[2022-11-04] MEDS: ASPIRIN 81 MG TAB.CHEW PO SCH (08:56)
[2022-11-04] MEDS: cefTRIAXone 2 GM in DEXTROSE 5% IN WATER 50 ML IV SCH (08:56)
[2022-11-04] MEDS: ATORVASTATIN 10 MG TABLET PO SCH (08:56)
[2022-11-04] MEDS: DOCUSATE SODIUM 100 MG CAPSULE PO SCH ×2 (08:56→20:17)
[2022-11-04] MEDS: ENOXAPARIN 40 MG/0.4 ML SYRINGE SQ SCH (08:56)
[2022-11-04] MEDS: CLOPIDOGREL 75 MG TABLET PO SCH (08:56)
[2022-11-04] MEDS: INSULIN LISPRO 1 UNIT/0.01 ML UNIT SQ SCH ×4 (08:57→20:18)
[2022-11-04] MEDS: GENTAMICIN SULFATE 40 MG, CLINDAMYCIN 300 MG in SODIUM CHLORIDE IRRIG SOLUTION 500 ML IRR SCH (09:30)
[2022-11-04] MEDS: VANCOMYCIN 1,500 MG in 0.9 % SODIUM CHLORIDE 500 ML IV SCH ×2 (09:40→20:26)
[2022-11-04] MEDS: oxyCODONE/APAP 5/325MG TABLET PO PRN ×2 (11:34→17:27)
--- NOTE | 2022-11-04 13:22 | General Surgery Progress Note ---
SUBJECTIVE Subjective Patient information: Note initiated : 11/04/22 at 1:09 pm Service Date, if different from initiated Date: [] Patient: Adam Winkler 67 y/o M admitted on 11/02/22 for surgical Debridement, Pulse Lavage Irrigation, . Chief Complaint: [] Additional PMFSH (Level 3 Only): Seen on rounds this morning and examined wounds later this afternoon. Constitutional Vitals: Vital Signs Temp Pulse Resp BP Pulse Ox O2 Del Method O2 Flow Rate 98.0 F 86 18 134/70 96 Room Air 2 11/04/22 12:00 11/04/22 12:00 11/04/22 12:00 11/04/22 12:00 11/04/22 12:00 11/04/22 12:00 11/04/22 03:57 Period Temp Pulse Resp BP Sys/Castaneda Pulse Ox O2 Del Method O2 Flow Rate Last 24 Hr 98.0 F-99.0 F 86-98 18-18 105-138/68-73 92-98 Nasal Cannula- Room Air 2-2 Intake and Output 11/04/22 11/04/22 11/04/22 03:59 11:59 19:59 Intake Total 1080 550 Output Total 700 Balance 380 550 Weight 229 lb 8 oz Intake & Output: Intake & Output 11/04/22 11/04/22 11/04/22 03:59 11:59 19:59 Intake Total 1080 550 Output Total 700 Balance 380 550 Weight 229 lb 8 oz Intake: IV 500 550 Vancomycin 1,500 mg In Sodium 500 500 Chloride 0.9% 500 ml @ 333.3 mls/hr IV Q12H [facility] Rx#: [id number] Rocephin 2 gm In Dextrose 5% in 50 Water 50 ml @ 100 mls/hr IV Q24H [facility] Rx#:[id number] Oral 580 Output: Void Amount 700 Other: Urine Appearance Clear Urine Color Yellow Urine Odor Normal # Voids 1 Exam: No changes VIKY. Remains at his baseline. Surgical wound sites examined. LEFT great toe wound base has granulations Resolving inflammatory changes. LEFT posterior heel Areas of granulation. 30% wound base has eschar. BONE biopsy calcaneum is NEGATIVE for osteo. Bone and soft tissue c/s Multiple organisms. including MRSA and Enterococcus, GNB Patient should be NWB on LEFT foot. A/P Narrative A/P Narrative: Assessment: He has COPD and needs O2 NC at night. Needs PULMONOLOGY consult. Dr. Britton. At this time will continue with local wound care. Needs DAILY dressing changes. Will await ID recommendations for PICC line IV antibiotics and duration. Patient should be NWB on LEFT leg. He needs rehabilitation at [facility] or similar facility. Plan of Treatment: Plan: Continue present treatment. Await developments. Await input from Infectious Diseases Pulmonology AND Case management. Will be following patient over w/e. Time Spent With Patient Time: Total time spent is greater than 50% in coordination of care (as documented) at patient's floor/unit and/or counseling patient: Initial: Total time with patient: 40 - 54 minutes
--- NOTE | 2022-11-04 14:10 | Internal Med Progress Note ---
SUBJECTIVE Subjective Patient information: Note initiated : 11/04/22 at 2:10 pm This is a 67-year-old male past medical history DMT2, HTN, CVA admitted on 11/02 due to chronic left foot diabetic ulcer in the heel and great toe after undergoing debridement by instructional systems specialist. As per patient he has had a chronic left foot wound for the past year since treated several times with different courses of antibiotics. Most recent treatment was approximately 1.5 months ago he cannot recall the name of the antibiotics, but in chart review patient was seen at urgent care back in 07/21 and was treated with doxycycline and Augmentin. As per chart, he had MRSA and Pseudomonas in wound. Upon admi ssion, pt was afebrile (t 99.3F), tachycardic (103bpm), rest of vital signs stable. On labs, patient had mild leukocytosis (11.8K > preadmission 13k), increased inflammatory markers (CRP 4.80, ESR 96). Preliminary wound cx results gram stain no wbcs, many to rare gpc, and few gnb. Patient now started on IV vancomycin plus ceftriaxone, bone biopsy and bone culture are currently pending. Now consulted to ID service for further recommendations. Denies fever, chills, malaise, nausea, vomit, diarrhea, dizziness, LOC. OR pathology from left calcaneus received with findings of viable lamellar bone with unremarkable marrow fat, negative for Osteomyelitis. Prelim wound cx +rare gpc, few gnr Principal diagnosis: chronic left foot diabetic infected ulcer Constitutional Vitals: Vital Signs Temp Pulse Resp BP Pulse Ox O2 Del Method O2 Flow Rate 98.0 F 86 18 134/70 96 Room Air 2 11/04/22 12:00 11/04/22 12:00 11/04/22 12:00 11/04/22 12:00 11/04/22 12:00 11/04/22 12:00 11/04/22 03:57 Period Temp Pulse Resp BP Sys/Castaneda Pulse Ox O2 Del Method O2 Flow Rate Last 24 Hr 98.0 F-99.0 F 86-98 18-18 105-138/68-73 92-98 Nasal Cannula- Room Air 2-2 Intake and Output 11/04/22 11/04/22 11/04/22 03:59 11:59 19:59 Intake Total 1080 550 300 Output Total 700 Balance 380 550 300 Weight 229 lb 8 oz Intake & Output: Intake & Output 11/04/22 11/04/22 11/04/22 03:59 11:59 19:59 Intake Total 1080 550 300 Output Total 700 Balance 380 550 300 Weight 229 lb 8 oz Intake: IV 500 550 Vancomycin 1,500 mg In Sodium 500 500 Chloride 0.9% 500 ml @ 333.3 mls/hr IV Q12H [facility] Rx#: [id number] Rocephin 2 gm In Dextrose 5% in 50 Water 50 ml @ 100 mls/hr IV Q24H [facility] Rx#:[id number] Oral 580 300 Output: Void Amount 700 Other: Meal Lunch Percent of Meal Consumed 100% Feeding Ability Assist with Tray Set Up Urine Appearance Clear Urine Color Yellow Urine Odor Normal # Voids 1 OBJ DATA Labs 11/03/22 05:09 11/03/22 05:09 Labs: Abnormal Lab Results 11/03/22 11/03/22 11/02/22 05:09 05:09 16:03 WBC RBC 4.54 L Hgb 12.1 L Hct 38.0 L MCHC Neut % (Auto) Lymph % (Auto) 13.2 L Eos % (Auto) 7.4 H Lymph # (Auto) 1.40 L Eos # (Auto) 0.79 H Absolute Neutrophils ESR Anion Gap 7.0 L Glucose 189 H 236 H Hemoglobin A1c 7.6 H C-Reactive Protein 4.80 H Albumin 3.1 L Globulin 4.2 H Albumin/Globulin Ratio 0.9 L 0.8 L Triglycerides 156 H 177 H 11/02/22 16:03 WBC 11.8 H RBC Hgb 13.5 L Hct MCHC 30.8 L Neut % (Auto) 78.1 H Lymph % (Auto) 8.9 L Eos % (Auto) Lymph # (Auto) 1.05 L Eos # (Auto) Absolute Neutrophils 9.20 H ESR 96 H Anion Gap Glucose Hemoglobin A1c C-Reactive Protein Albumin Globulin Albumin/Globulin Ratio Triglycerides Meds: Medications Acetaminophen (Acetaminophen 325 Mg Tablet) 650 mg PO Q6HP PRN; Protocol PRN Reason: Per Pain Protocol/Fever > 101 Albuterol/Ipratropium (Ipratropium/Albuterol 3 Ml Ampul.Neb) 3 ml NEB Q4HP PRN PRN Reason: Shortness Of Breath Aspirin (Aspirin 81 Mg Tab.Chew) 81 mg PO DAILY [facility] Last Admin: 11/04/22 08:56 Dose: 81 mg Atorvastatin Calcium (Atorvastatin 10 Mg Tablet) 5 mg PO DAILY [facility] Last Admin: 11/04/22 08:56 Dose: 5 mg Clopidogrel Bisulfate (Clopidogrel 75 Mg Tablet) 75 mg PO QDAY [facility] Last Admin: 11/04/22 08:56 Dose: 75 mg Dextrose (Dextrose 50% 50 Ml Vial) 0 ml IV UD PRN PRN Reason: Per Sliding Scale Diagnostic Test (Pha) (Accu-Chek 1 Each Strip) 1 each FS ACHS [facility] Last Admin: 11/04/22 12:19 Dose: 1 each Docusate Sodium (Docusate Sodium 100 Mg Capsule) 100 mg PO BID [facility] Last Admin: 11/04/22 08:56 Dose: 100 mg Enoxaparin Sodium (Enoxaparin 40 Mg/0.4 Ml Syringe) 40 mg SQ DAILY [facility] Last Admin: 11/04/22 08:56 Dose: 40 mg Glucose (Dextrose 31 Gm Oral.Susp) 15 gm PO PRN PRN PRN Reason: Hypoglycemia Potassium Chloride 40 meq/ (Dextrose) 520 mls @ 130 mls/hr IV UD PRN PRN Reason: Potassium < 3 Magnesium Sulfate (Magnesium Sulfate) 2 gm in 50 mls @ 50 mls/hr IV UD PRN PRN Reason: Magnesium </= 1.6 Ceftriaxone Sodium 2 gm/ (Dextrose) 50 mls @ 100 mls/hr IV Q24H [facility]; Protocol Last Infusion: 11/04/22 09:26 Dose: Infused Vancomycin HCl 1,500 mg/ (Sodium Chloride) 500 mls @ 333.3 mls/hr IV Q12H [facility] Last Infusion: 11/04/22 11:11 Dose: Infused Gentamicin Sulfate 40 mg/Clindamycin Phosphate 300 mg/Sodium Chloride 503 mls @ 0 mls/hr IRR Q24H [facility] Last Admin: 11/04/22 09:30 Dose: 1 mls/hr Insulin Glargine (Insulin Glargine, Human 1 Unit/0.01 Ml) 50 unit SQ BID [facility] Last Admin: 11/04/22 08:55 Dose: 50 units Insulin Human Lispro (Insulin Lispro 1 Unit/0.01 Ml Unit) 0 unit SQ [facility]; Protocol Last Admin: 11/04/22 12:18 Dose: 4 units Morphine Sulfate (Morphine 4 Mg/Ml Vial) 0 mg IV Q3HP PRN PRN Reason: Pain Last Admin: 11/04/22 12:39 Dose: 4 mg Mupirocin (Mupirocin Oint 2% 22gm) 1 dose NARES BID [facility] Last Admin: 11/04/22 08:55 Dose: 1 dose Ondansetron HCl (Ondansetron 4 Mg/2 Ml Vial) 4 mg IV Q4HP PRN PRN Reason: Nausea And Vomiting Oxycodone/Acetaminophen (Oxycodone/Apap 5/325mg Tablet) 1 - 2 tab PO Q6HP PRN; Protocol PRN Reason: Per Pain Protocol Last Admin: 11/04/22 11:34 Dose: 2 tab Polyethylene Glycol (Polyethylene Glycol 3350 17 Gm Packet) 17 gm PO DAILYP PRN PRN Reason: Constipation Potassium Chloride (Potassium Chloride 20 Meq Tablet) 40 meq PO UD PRN PRN Reason: Potssium is 3-3.5 Potassium Chloride (Potassium Chloride 20 Meq Tablet) 40 meq PO UD PRN PRN Reason: Potassium < 3 Senna (Sennosides 1 Tablet) 2 tab PO DAILYP PRN PRN Reason: Constipation Sodium Chloride (0.9 % Sodium Chloride 10 Ml Syringe) 10 ml IV Q8 [facility] Last Admin: 11/04/22 06:15 Dose: 10 ml Vancomycin HCl (Vancomycin Per Pharmacy) 1 order IV UD [facility]; Protocol A/P Assessment and plan (1) Decubitus ulcer of left foot, stage 4: Assessment and plan: This is a 67 y/o male pmhx DMT2, HTN, CVA admitted on 11/02 due to chronic left foot diabetic ulcer in the heel and great toe for 1 yea after undergoing debridement by instructional systems specialist. Prelim wound cx gram stain no wbcs, many to rare gpc, and few gnb. OR pathology of left calcaneus negative for OM. BCx preliminary no growth to date. Confirmed with microlab wound culture is growin MRSA, Enterococcus, and Pseudomonas (s= aztreonam, cipro, cefepime, ceftazidime, gentamicin, levofloxacin, pip/tazo) Plan: - discontinue Ceftriaxone - start Cefepime 2g IV q8hrs; confirmed with the lab, pt is growing Pseudomonas in wound culture - continue with Vancomycin 1500mg IV q12hrs while admitted; monitor vanco trough 30mins before 4th dose - follow up OR final bone culture results - agree with PICC line placement; will recommend 4 weeks antibiotic tx given the chronicity of patient's wound and slow healing - follow up with Wound care - ID will follow up for further recommendations once susceptibilities are available Status: Acute Narrative Plan of Treatment: Plan: Continue present treatment. Await developments. Await input from Infectious Diseases Pulmonology AND Case management. Will be following patient over w/e. Time Spent With Patient Time: Total time spent is greater than 50% in coordination of care (as documented) at patient's floor/unit and/or counseling patient: Subsequent: Total time with patient: 25 - 34 minutes Total Critical Care Time: 30 (mins) Attestation: Nany Diaz MD [phone] QUALITY VTE Deep Vein Thrombosis/Pulmonary Embolism Present on Admission: No
[2022-11-04] MEDS: CEFEPIME 2 GM VIAL IV SCH ×2 (15:53→22:22)
--- NOTE | 2022-11-04 18:52 | Internal Med Progress Note ---
SUBJECTIVE Subjective Patient information: Note initiated : 11/04/22 at 6:49 pm Service Date, if different from initiated Date: [] Patient: Adam Winkler a 67 y/o M admitted on 11/02/22 for surgical Debridement, Pulse Lavage Irrigation, . Chief Complaint: [] Principal diagnosis: chronic left foot diabetic infected ulcer Interval history: History of present illness: Mr. Winkler is a 67 year old M Presents today after surgical debridement of left diabetic foot wound/ulcer stage IV and left great toe. This patient is been following up in wound care with Dewey Fuentes for about a year and presented today for Dr. Lazar to do a debridement and bone culture as it is felt he has osteomyelitis. Dr. Lazar requested admission for further IV antibiotics for osteomyelitis. Patient denies fevers or chills. Pain updated labs. Patient has history of diabetes with neuropathy history of stroke chronic pain. He was recently started on oxygen at night and has felt that he probably has obstructive sleep apnea but he has not had a special sleep study yet. He wears 2 L of oxygen at night only not during the day. 11/03 No overnight event or new complaints. Leukocytosis improving. Anemia present. Significantly elevated ESR 96. Dr. Davis said the wound went down to the bone. 11/04 Patient feeling well today. No overnight event or new complaints. Awaiting surgical wound and bone cultures. ID following and continue current antibiotics until cultures resulted. 11/05 No significant events overnight, yesterday infectious disease recommended starting cefepime and discontinued ceftriaxone given the culture results showing a Pseudomonas. The patient continues on vancomycin as well. Awaiting PICC placement for long-term outpatient IV antibiotic. Physical exam Head: Atraumatic, normal inspection. Eyes: normal appearance, no scleral icterus. Neck: full ROM Respiratory: no respiratory distress. Cardiovascular: normal rate and rhythm, S1, S2. GI/Abdominal: soft, nontender, no guarding. Extremities: Left foot covered in bandage and Kevin wrap Neurological: CN II-XII intact, intact motor, intact sensation. Psychiatric: normal mood. Skin: warm, normal color Constitutional Vitals: Vital Signs Temp Pulse Resp BP Pulse Ox O2 Del Method O2 Flow Rate 97.9 F 92 H 14 138/71 94 Room Air 0 11/04/22 15:49 11/04/22 15:49 11/04/22 15:49 11/04/22 15:49 11/04/22 15:49 11/04/22 15:49 11/04/22 15:49 Period Temp Pulse Resp BP Sys/Castaneda Pulse Ox O2 Del Method O2 Flow Rate Last 24 Hr 97.9 F-99.0 F 86-94 14-18 129-138/70-73 92-98 Nasal Cannula- Room Air 0-2 Intake and Output 11/04/22 11/04/22 11/04/22 03:59 11:59 19:59 Intake Total 1080 550 700 Output Total 700 Balance 380 550 700 Weight 104.099 kg Intake & Output: Intake & Output 11/04/22 11/04/22 11/04/22 03:59 11:59 19:59 Intake Total 1080 550 700 Output Total 700 Balance 380 550 700 Weight 104.099 kg Intake: IV 500 550 Vancomycin 1,500 mg In Sodium 500 500 Chloride 0.9% 500 ml @ 333.3 mls/hr IV Q12H [facility] Rx#: [id number] Rocephin 2 gm In Dextrose 5% in 50 Water 50 ml @ 100 mls/hr IV Q24H [facility] Rx#:[id number] Oral 580 700 Output: Void Amount 700 Other: Meal Lunch Percent of Meal Consumed 100% Feeding Ability Assist with Tray Set Up Urine Appearance Clear Urine Color Yellow Urine Odor Normal # Voids 1 OBJ DATA Labs 11/03/22 05:09 11/03/22 05:09 Labs: Abnormal Lab Results 11/03/22 11/03/22 11/02/22 05:09 05:09 16:03 WBC RBC 4.54 L Hgb 12.1 L Hct 38.0 L MCHC Neut % (Auto) Lymph % (Auto) 13.2 L Eos % (Auto) 7.4 H Lymph # (Auto) 1.40 L Eos # (Auto) 0.79 H Absolute Neutrophils ESR Anion Gap 7.0 L Glucose 189 H 236 H Hemoglobin A1c 7.6 H C-Reactive Protein 4.80 H Albumin 3.1 L Globulin 4.2 H Albumin/Globulin Ratio 0.9 L 0.8 L Triglycerides 156 H 177 H 11/02/22 16:03 WBC 11.8 H RBC Hgb 13.5 L Hct MCHC 30.8 L Neut % (Auto) 78.1 H Lymph % (Auto) 8.9 L Eos % (Auto) Lymph # (Auto) 1.05 L Eos # (Auto) Absolute Neutrophils 9.20 H ESR 96 H Anion Gap Glucose Hemoglobin A1c C-Reactive Protein Albumin Globulin Albumin/Globulin Ratio Triglycerides Meds: Medications Acetaminophen (Acetaminophen 325 Mg Tablet) 650 mg PO Q6HP PRN; Protocol PRN Reason: Per Pain Protocol/Fever > 101 Albuterol/Ipratropium (Ipratropium/Albuterol 3 Ml Ampul.Neb) 3 ml NEB Q4HP PRN PRN Reason: Shortness Of Breath Aspirin (Aspirin 81 Mg Tab.Chew) 81 mg PO DAILY [facility] Last Admin: 11/04/22 08:56 Dose: 81 mg Atorvastatin Calcium (Atorvastatin 10 Mg Tablet) 5 mg PO DAILY [facility] Last Admin: 11/04/22 08:56 Dose: 5 mg Cefepime HCl (Cefepime 2 Gm Vial) 2 gm IV Q8H [facility]; Protocol Last Admin: 11/04/22 15:53 Dose: 2 gm Clopidogrel Bisulfate (Clopidogrel 75 Mg Tablet) 75 mg PO QDAY [facility] Last Admin: 11/04/22 08:56 Dose: 75 mg Dextrose (Dextrose 50% 50 Ml Vial) 0 ml IV UD PRN PRN Reason: Per Sliding Scale Diagnostic Test (Pha) (Accu-Chek 1 Each Strip) 1 each FS ACHS [facility] Last Admin: 11/04/22 17:22 Dose: 1 each Docusate Sodium (Docusate Sodium 100 Mg Capsule) 100 mg PO BID [facility] Last Admin: 11/04/22 08:56 Dose: 100 mg Enoxaparin Sodium (Enoxaparin 40 Mg/0.4 Ml Syringe) 40 mg SQ DAILY [facility] Last Admin: 11/04/22 08:56 Dose: 40 mg Glucose (Dextrose 31 Gm Oral.Susp) 15 gm PO PRN PRN PRN Reason: Hypoglycemia Potassium Chloride 40 meq/ (Dextrose) 520 mls @ 130 mls/hr IV UD PRN PRN Reason: Potassium < 3 Magnesium Sulfate (Magnesium Sulfate) 2 gm in 50 mls @ 50 mls/hr IV UD PRN PRN Reason: Magnesium </= 1.6 Vancomycin HCl 1,500 mg/ (Sodium Chloride) 500 mls @ 333.3 mls/hr IV Q12H [facility] Last Infusion: 11/04/22 11:11 Dose: Infused Gentamicin Sulfate 40 mg/Clindamycin Phosphate 300 mg/Sodium Chloride 503 mls @ 0 mls/hr IRR Q24H [facility] Last Admin: 11/04/22 09:30 Dose: 1 mls/hr Insulin Glargine (Insulin Glargine, Human 1 Unit/0.01 Ml) 50 unit SQ BID [facility] Last Admin: 11/04/22 08:55 Dose: 50 units Insulin Human Lispro (Insulin Lispro 1 Unit/0.01 Ml Unit) 0 unit SQ ACHS [facility]; Protocol Last Admin: 11/04/22 17:22 Dose: Not Given Morphine Sulfate (Morphine 4 Mg/Ml Vial) 4 mg IV Q3HP PRN; Protocol PRN Reason: Per Pain Protocol Mupirocin (Mupirocin Oint 2% 22gm) 1 dose NARES BID [facility] Last Admin: 11/04/22 08:55 Dose: 1 dose Ondansetron HCl (Ondansetron 4 Mg/2 Ml Vial) 4 mg IV Q4HP PRN PRN Reason: Nausea And Vomiting Oxycodone/Acetaminophen (Oxycodone/Apap 5/325mg Tablet) 1 - 2 tab PO Q6HP PRN; Protocol PRN Reason: Per Pain Protocol Last Admin: 11/04/22 17:27 Dose: 2 tab Polyethylene Glycol (Polyethylene Glycol 3350 17 Gm Packet) 17 gm PO DAILYP PRN PRN Reason: Constipation Potassium Chloride (Potassium Chloride 20 Meq Tablet) 40 meq PO UD PRN PRN Reason: Potssium is 3-3.5 Potassium Chloride (Potassium Chloride 20 Meq Tablet) 40 meq PO UD PRN PRN Reason: Potassium < 3 Senna (Sennosides 1 Tablet) 2 tab PO DAILYP PRN PRN Reason: Constipation Sodium Chloride (0.9 % Sodium Chloride 10 Ml Syringe) 10 ml IV Q8 [facility] Last Admin: 11/04/22 15:54 Dose: 10 ml Vancomycin HCl (Vancomycin Per Pharmacy) 1 order IV UD [facility]; Protocol A/P Narrative A/P Narrative: Assessment: 67-year-old male with a history of hyperlipidemia, type 2 diabetes mellitus, COPD, CVA, chronic anemia, chronic pain, concern for obstructive sleep apnea, nocturnal hypoxia requiring oxygen supplementation of 2 L/min admitted for left heel osteomyelitis. *Left heel diabetic wound/osteomyelitis: s/p surgical debridement and bone biopsy (11/02) -leukocytosis improved *DM w/neuropathy: -a1c 7.6 *COPD *h/o CVA: on asa/plavix *HLD: *Chronic pain: Follows with pain clinic *Anemia: *Possible RAVEN *Nocturnal hypoxia P: -Vancomycin IV per pharmacy and cefepime 2 g IV every 8 hours. -PICC line placement -ID consult for osteomyelitis, recommended 4 weeks antibiotic treatment. -Dr. Yuong for wound care -cont asa/plavix/statin -ssi -pt/ot -CM for placement needs -ppx: lovenox Plan of Treatment: Plan: Continue present treatment. Await developments. Await input from Infectious Diseases Pulmonology AND Case management. Will be following patient over w/e. Time Spent With Patient Time: Total time spent is greater than 50% in coordination of care (as documented) at patient's floor/unit and/or counseling patient: QUALITY VTE Deep Vein Thrombosis/Pulmonary Embolism Present on Admission: No
[2022-11-05] MEDS: morphine 4 MG/ML VIAL IV PRN ×7 (00:33→21:42)
[2022-11-05] MEDS: 0.9 % SODIUM CHLORIDE 10 ML SYRINGE IV SCH ×4 (05:45→22:48)
[2022-11-05] MEDS: CEFEPIME 2 GM VIAL IV SCH ×3 (05:47→22:48)
[2022-11-05] MEDS: INSULIN LISPRO 1 UNIT/0.01 ML UNIT SQ SCH ×4 (08:03→21:43)
[2022-11-05] MEDS: MUPIROCIN OINT 2% 22GM NARES SCH ×2 (08:32→21:42)
[2022-11-05] MEDS: CLOPIDOGREL 75 MG TABLET PO SCH (08:33)
[2022-11-05] MEDS: ATORVASTATIN 10 MG TABLET PO SCH (08:33)
[2022-11-05] MEDS: INSULIN GLARGINE, HUMAN 1 UNIT/0.01 ML SQ SCH ×2 (08:33→21:43)
[2022-11-05] MEDS: DOCUSATE SODIUM 100 MG CAPSULE PO SCH ×2 (08:33→21:42)
[2022-11-05] MEDS: ASPIRIN 81 MG TAB.CHEW PO SCH (08:33)
[2022-11-05] MEDS: ENOXAPARIN 40 MG/0.4 ML SYRINGE SQ SCH (08:34)
[2022-11-05] MEDS: VANCOMYCIN 1,500 MG in 0.9 % SODIUM CHLORIDE 500 ML IV SCH ×2 (09:46→21:05)
[2022-11-05] MEDS: oxyCODONE/APAP 5/325MG TABLET PO PRN (11:17)
[2022-11-05] MEDS ORDERED: 0.9 % SODIUM CHLORIDE 10 ML SYRINGE IV PRN (13:40)
--- NOTE | 2022-11-05 14:30 | General Surgery Progress Note ---
SUBJECTIVE Subjective Patient information: Note initiated : 11/05/22 at 2:25 pm Service Date, if different from initiated Date: [] Patient: Adam Winkler 67 y/o M admitted on 11/02/22 for surgical Debridement, Pulse Lavage Irrigation, . Chief Complaint: [] Principal diagnosis: chronic left foot diabetic infected ulcer Additional PMFSH (Level 3 Only): Patient seen with TISHA CALDWELL and his Mariela in room 130 Examined LEFT posterior heel and LEFT 1st toe wounds. Spoke with Dr. Nany Parada Infectious Diseases. Appreciate I D input. Constitutional Vitals: Vital Signs Temp Pulse Resp BP Pulse Ox O2 Del Method O2 Flow Rate 98.0 F 90 18 135/80 94 Room Air 2 11/05/22 11:00 11/05/22 11:00 11/05/22 11:00 11/05/22 11:00 11/05/22 11:00 11/05/22 11:00 11/05/22 03:00 Period Temp Pulse Resp BP Sys/Castaneda Pulse Ox O2 Del Method O2 Flow Rate Last 24 Hr 97.9 F-98.9 F 87-92 14-18 121-147/62-90 93-95 Nasal Cannula- Room Air 0-2 Intake and Output 11/05/22 11/05/22 11/05/22 03:59 11:59 19:59 Intake Total 500 1940 Output Total 375 1300 Balance 125 640 Weight 235 lb 11.2 oz Intake & Output: Intake & Output 11/05/22 11/05/22 11/05/22 03:59 11:59 19:59 Intake Total 500 1940 Output Total 375 1300 Balance 125 640 Weight 235 lb 11.2 oz Intake: IV 500 500 Vancomycin 1,500 mg In Sodium 500 500 Chloride 0.9% 500 ml @ 333.3 mls/hr IV Q12H [facility] Rx#: [id number] Oral 1440 Output: Void Amount 375 1300 Other: Meal Breakfast Percent of Meal Consumed 100% Feeding Ability Independent Urine Appearance Clear Clear Urine Color Yellow Yellow Urine Odor Normal Normal Exam: Afebrile. VSS. No distress. Unchanged VIKY. At his baseline. LEFT posterior heel and great toe wounds are clean. Granulations of toe and demarcating eschar heel. Awaits PICC line followed by placement and Phy Th. A/P Narrative A/P Narrative: Assessment: Progressing well. Plan of Treatment: Plan: Continue present treatment. Await developments. Await input from Pulmonology AND Case management. Will be following patient over w/e. Time Spent With Patient Time: Total time spent is greater than 50% in coordination of care (as documented) at patient's floor/unit and/or counseling patient:
[2022-11-05] MEDS: GENTAMICIN SULFATE 40 MG, CLINDAMYCIN 300 MG in SODIUM CHLORIDE IRRIG SOLUTION 500 ML IRR SCH (14:34)
[2022-11-06] MEDS: CEFEPIME 2 GM VIAL IV SCH ×3 (05:56→21:38)
[2022-11-06] MEDS: 0.9 % SODIUM CHLORIDE 10 ML SYRINGE IV SCH ×6 (05:56→21:38)
[2022-11-06] MEDS: morphine 4 MG/ML VIAL IV PRN ×2 (06:51→10:08)
[2022-11-06] MEDS: INSULIN LISPRO 1 UNIT/0.01 ML UNIT SQ SCH ×4 (08:07→21:59)
[2022-11-06] MEDS: ENOXAPARIN 40 MG/0.4 ML SYRINGE SQ SCH (10:04)
[2022-11-06] MEDS: MUPIROCIN OINT 2% 22GM NARES SCH ×2 (10:05→21:29)
[2022-11-06] MEDS: CLOPIDOGREL 75 MG TABLET PO SCH (10:05)
[2022-11-06] MEDS: ATORVASTATIN 10 MG TABLET PO SCH (10:05)
[2022-11-06] MEDS: DOCUSATE SODIUM 100 MG CAPSULE PO SCH ×2 (10:05→21:36)
[2022-11-06] MEDS: ASPIRIN 81 MG TAB.CHEW PO SCH (10:05)
--- NOTE | 2022-11-06 11:40 | Internal Med Progress Note ---
SUBJECTIVE Subjective Patient information: Note initiated : 11/06/22 at 11:38 am Service Date, if different from initiated Date: [] Patient: Adam Winkler a 67 y/o M admitted on 11/02/22 for surgical Debridement, Pulse Lavage Irrigation, . Chief Complaint: [] Principal diagnosis: chronic left foot diabetic infected ulcer Interval history: History of present illness: Mr. Winkler is a 67 year old M Presents today after surgical debridement of left diabetic foot wound/ulcer stage IV and left great toe. This patient is been following up in wound care with Dewey Fuentes for about a year and presented today for Dr. Lazar to do a debridement and bone culture as it is felt he has osteomyelitis. Dr. Lazar requested admission for further IV antibiotics for osteomyelitis. Patient denies fevers or chills. Pain updated labs. Patient has history of diabetes with neuropathy history of stroke chronic pain. He was recently started on oxygen at night and has felt that he probably has obstructive sleep apnea but he has not had a special sleep study yet. He wears 2 L of oxygen at night only not during the day. 11/03 No overnight event or new complaints. Leukocytosis improving. Anemia present. Significantly elevated ESR 96. Dr. Davis said the wound went down to the bone. 11/04 Patient feeling well today. No overnight event or new complaints. Awaiting surgical wound and bone cultures. ID following and continue current antibiotics until cultures resulted. 11/05 No significant events overnight, yesterday infectious disease recommended starting cefepime and discontinued ceftriaxone given the culture results showing a Pseudomonas. The patient continues on vancomycin as well. Awaiting PICC placement for long-term outpatient IV antibiotic. 11/06 Vital stable overnight, blood culture showing no growth after 3 days, awaiting PICC line placement. Changed analgesics to Dilaudid instead of morphine which the patient says is not working very well for his chronic back pain now exacerbated likely due to inactivity. Physical exam Head: Atraumatic, normal inspection. Eyes: normal appearance, no scleral icterus. Neck: full ROM Respiratory: no respiratory distress. Cardiovascular: normal rate and rhythm, S1, S2. GI/Abdominal: soft, nontender, no guarding. Extremities: Left foot covered in bandage and Kevin wrap Neurological: CN II-XII intact, intact motor, intact sensation. Psychiatric: normal mood. Skin: warm, normal color Constitutional Vitals: Vital Signs Temp Pulse Resp BP Pulse Ox O2 Del Method O2 Flow Rate 98.6 F 84 16 127/79 94 Nasal Cannula 2 11/06/22 03:00 11/06/22 03:00 11/06/22 03:00 11/06/22 03:00 11/06/22 03:00 11/06/22 03:00 11/06/22 03:00 Period Temp Pulse Resp BP Sys/Castaneda Pulse Ox O2 Del Method O2 Flow Rate Last 24 Hr 98.1 F-99.1 F 84-93 16-20 127-159/74-88 94-96 Nasal Cannula- Room Air 2 Intake and Output 11/05/22 11/06/22 11/06/22 19:59 03:59 11:59 Intake Total 500 500 480 Output Total 1600 1075 500 Balance -1100 -575 -20 Weight 108.409 kg Intake & Output: Intake & Output 11/05/22 11/06/22 11/06/22 19:59 03:59 11:59 Intake Total 500 500 480 Output Total 1600 1075 500 Balance -1100 -575 -20 Weight 108.409 kg Intake: IV 500 Vancomycin 1,500 mg In Sodium 500 Chloride 0.9% 500 ml @ 333.3 mls/hr IV Q12H [facility] Rx#: [id number] Oral 500 480 Output: Void Amount 1600 1075 500 Other: Meal Lunch Percent of Meal Consumed 100% Feeding Ability Independent Urine Appearance Clear Clear Clear Urine Color Yellow Yellow Yellow Urine Odor Normal Normal Stool Size Small Stool Color Brown Stool Consistency Formed # Bowel Movements 1 OBJ DATA Labs 11/03/22 05:09 11/03/22 05:09 Meds: Medications Acetaminophen (Acetaminophen 325 Mg Tablet) 650 mg PO Q6HP PRN; Protocol PRN Reason: Per Pain Protocol/Fever > 101 Albuterol/Ipratropium (Ipratropium/Albuterol 3 Ml Ampul.Neb) 3 ml NEB Q4HP PRN PRN Reason: Shortness Of Breath Aspirin (Aspirin 81 Mg Tab.Chew) 81 mg PO DAILY [facility] Last Admin: 11/06/22 10:05 Dose: 81 mg Atorvastatin Calcium (Atorvastatin 10 Mg Tablet) 5 mg PO DAILY [facility] Last Admin: 11/06/22 10:05 Dose: 5 mg Cefepime HCl (Cefepime 2 Gm Vial) 2 gm IV Q8H [facility]; Protocol Last Admin: 11/06/22 05:56 Dose: 2 gm Clopidogrel Bisulfate (Clopidogrel 75 Mg Tablet) 75 mg PO QDAY [facility] Last Admin: 11/06/22 10:05 Dose: 75 mg Dextrose (Dextrose 50% 50 Ml Vial) 0 ml IV UD PRN PRN Reason: Per Sliding Scale Diagnostic Test (Pha) (Accu-Chek 1 Each Strip) 1 each FS ACHS [facility] Last Admin: 11/06/22 08:07 Dose: 1 each Docusate Sodium (Docusate Sodium 100 Mg Capsule) 100 mg PO BID [facility] Last Admin: 11/06/22 10:05 Dose: 100 mg Enoxaparin Sodium (Enoxaparin 40 Mg/0.4 Ml Syringe) 40 mg SQ DAILY [facility] Last Admin: 11/06/22 10:04 Dose: 40 mg Glucose (Dextrose 31 Gm Oral.Susp) 15 gm PO PRN PRN PRN Reason: Hypoglycemia Heparin Sodium (Porcine) (Heparin Flush 10 Units/Ml 5 Ml Syringe) 2 ml IV Q12 [facility] Last Admin: 11/06/22 10:06 Dose: Not Given Hydromorphone HCl (Hydromorphone 0.5 Mg/0.5 Ml Syringe) 0.5 mg IV Q2HP PRN; Protocol PRN Reason: Per Pain Protocol Potassium Chloride 40 meq/ (Dextrose) 520 mls @ 130 mls/hr IV UD PRN PRN Reason: Potassium < 3 Magnesium Sulfate (Magnesium Sulfate) 2 gm in 50 mls @ 50 mls/hr IV UD PRN PRN Reason: Magnesium </= 1.6 Gentamicin Sulfate 40 mg/Clindamycin Phosphate 300 mg/Sodium Chloride 503 mls @ 0 mls/hr IRR Q24H [facility] Last Admin: 11/05/22 14:34 Dose: 1 mls/hr Vancomycin HCl 1,250 mg/ (Sodium Chloride) 500 mls @ 333.3 mls/hr IV Q12H [facility] Insulin Glargine (Insulin Glargine, Human 1 Unit/0.01 Ml) 50 unit SQ BID [facility] Last Admin: 11/05/22 21:43 Dose: 50 units Insulin Human Lispro (Insulin Lispro 1 Unit/0.01 Ml Unit) 0 unit SQ ACHS [facility]; Protocol Last Admin: 11/06/22 08:07 Dose: Not Given Mupirocin (Mupirocin Oint 2% 22gm) 1 dose NARES BID [facility] Last Admin: 11/06/22 10:05 Dose: 1 dose Ondansetron HCl (Ondansetron 4 Mg/2 Ml Vial) 4 mg IV Q4HP PRN PRN Reason: Nausea And Vomiting Oxycodone/Acetaminophen (Oxycodone/Apap 5/325mg Tablet) 1 - 2 tab PO Q6HP PRN; Protocol PRN Reason: Per Pain Protocol Last Admin: 11/05/22 11:17 Dose: 2 tab Polyethylene Glycol (Polyethylene Glycol 3350 17 Gm Packet) 17 gm PO DAILYP PRN PRN Reason: Constipation Potassium Chloride (Potassium Chloride 20 Meq Tablet) 40 meq PO UD PRN PRN Reason: Potssium is 3-3.5 Potassium Chloride (Potassium Chloride 20 Meq Tablet) 40 meq PO UD PRN PRN Reason: Potassium < 3 Senna (Sennosides 1 Tablet) 2 tab PO DAILYP PRN PRN Reason: Constipation Sodium Chloride (0.9 % Sodium Chloride 10 Ml Syringe) 10 ml IV Q8 [facility] Last Admin: 11/06/22 05:56 Dose: 10 ml Sodium Chloride (0.9 % Sodium Chloride 10 Ml Syringe) 10 ml IV Q12 [facility] Last Admin: 11/05/22 21:05 Dose: 10 ml Sodium Chloride (0.9 % Sodium Chloride 10 Ml Syringe) 10 ml IV UD PRN PRN Reason: FLUSH Vancomycin HCl (Vancomycin Per Pharmacy) 1 order IV UD [facility]; Protocol A/P Narrative A/P Narrative: Assessment: 67-year-old male with a history of hyperlipidemia, type 2 diabetes mellitus, COPD, CVA, chronic anemia, chronic pain, concern for obstructive sleep apnea, nocturnal hypoxia requiring oxygen supplementation of 2 L/min admitted for left heel osteomyelitis. *Left heel diabetic wound/osteomyelitis: s/p surgical debridement and bone biopsy (11/02) -leukocytosis improved *DM w/neuropathy: -a1c 7.6 *COPD *h/o CVA: on asa/plavix *HLD: *Chronic pain: Follows with pain clinic *Anemia: *Possible RAVEN *Nocturnal hypoxia P: -Vancomycin IV per pharmacy and cefepime 2 g IV every 8 hours. -PICC line placement -Analgesics -ID following for osteomyelitis, recommended 4 weeks antibiotic treatment. -Dr. Young for wound care -cont asa/plavix/statin -ssi -pt/ot -CM for placement needs -ppx: lovenox Plan of Treatment: Plan: Continue present treatment. Await developments. Await input from Pulmonology AND Case management. Will be following patient over w/e. Time Spent With Patient Time: Total time spent is greater than 50% in coordination of care (as documented) at patient's floor/unit and/or counseling patient: QUALITY VTE Deep Vein Thrombosis/Pulmonary Embolism Present on Admission: No
[2022-11-06] MEDS: VANCOMYCIN 1,500 MG in 0.9 % SODIUM CHLORIDE 500 ML IV SCH (11:47)
[2022-11-06] MEDS: INSULIN GLARGINE, HUMAN 1 UNIT/0.01 ML SQ SCH ×2 (12:01→21:36)
[2022-11-06] MEDS: VANCOMYCIN 1,250 MG in 0.9 % SODIUM CHLORIDE 500 ML IV SCH ×2 (12:09→21:30)
[2022-11-06] MEDS: HYDROmorphone 0.5 MG/0.5 ML SYRINGE IV PRN ×2 (16:05→21:49)
[2022-11-06] MEDS: GENTAMICIN SULFATE 40 MG, CLINDAMYCIN 300 MG in SODIUM CHLORIDE IRRIG SOLUTION 500 ML IRR SCH (20:25)
[2022-11-06] MEDS: oxyCODONE/APAP 5/325MG TABLET PO PRN ×2 (21:38→21:49)
[2022-11-07] MEDS: HYDROmorphone 0.5 MG/0.5 ML SYRINGE IV PRN ×4 (00:30→07:57)
[2022-11-07] MEDS: oxyCODONE/APAP 5/325MG TABLET PO PRN ×2 (03:56→10:49)
[2022-11-07] MEDS: CEFEPIME 2 GM VIAL IV SCH (05:36)
[2022-11-07] MEDS: 0.9 % SODIUM CHLORIDE 10 ML SYRINGE IV SCH ×2 (05:36→09:47)
[2022-11-07 06:13] LABS: Basophils # (Auto) 0.06 K/mcL (0.00-0.30); Basophils % (Auto) 0.7 % (0.0-2.0); Eosinophils # (Auto) 1.13 K/mcL (0.00-0.70); Hematocrit 37.6 % (40.1-51.0); Hemoglobin 11.8 g/dL (13.7-17.5); Lymphocytes # (Auto) 1.89 K/mcL (1.50-4.80); Lymphocytes % (Auto) 21.7 % (15.5-49.0); Mean Cell Volume 83.4 fL (80.0-100.0); Mean Corpuscular HGB Conc 31.4 g/dL (31.0-36.0); Mean Platelet Volume 9.6 fL (8.8-12.5); Monocytes # (Auto) 0.82 K/mcL (0.10-0.90); Monocytes % (Auto) 9.4 % (1.0-12.0); Platelet Count 392 K/mcL (140-440); RBC 4.51 M/mcL (4.63-6.08); Red Cell Distribution Width 12.6 % (11.5-14.5); WBC 8.7 K/mcL (4.5-11.0)
[2022-11-07 06:28] LABS: ALT/SGPT 17 U/L (<40); AST/SGOT 23 U/L (<40); Albumin 3.4 gm/dL (3.2-5.2); Alkaline Phosphatase 59 U/L (39-117); Bilirubin,Direct < 0.2 mg/dL (0-0.3); Bilirubin,Total 0.2 mg/dL (0.1-1.0); Blood Urea Nitrogen 17 mg/dL (8-23); Carbon Dioxide 29 mmol/L (22-30); Chloride 100 mmol/L (96-108); Globulin 3.3 gm/dL (2.2-3.7); Glomerular Filtration Rate 96; Glucose 98 mg/dL (70-105); Lactate Dehydrogenase 184 U/L (135-225); Phosphorous 3.1 mg/dL (2.5-4.5); Triglycerides 119 mg/dL (<150); Uric Acid 5.3 mg/dL (2.5-8.0)
[2022-11-07] MEDS: INSULIN LISPRO 1 UNIT/0.01 ML UNIT SQ SCH ×2 (07:46→12:19)
[2022-11-07] MEDS: MUPIROCIN OINT 2% 22GM NARES SCH (09:08)
[2022-11-07] MEDS: ENOXAPARIN 40 MG/0.4 ML SYRINGE SQ SCH (09:08)
[2022-11-07] MEDS: ASPIRIN 81 MG TAB.CHEW PO SCH (09:09)
[2022-11-07] MEDS: CLOPIDOGREL 75 MG TABLET PO SCH (09:09)
[2022-11-07] MEDS: INSULIN GLARGINE, HUMAN 1 UNIT/0.01 ML SQ SCH (09:09)
[2022-11-07] MEDS: DOCUSATE SODIUM 100 MG CAPSULE PO SCH (09:09)
[2022-11-07] MEDS: ATORVASTATIN 10 MG TABLET PO SCH (09:09)
--- NOTE | 2022-11-07 09:59 | XRay Report ---
CLINICAL INFORMATION: Evaluate for diaphragm dysfunction COMPARISON: None. TECHNIQUE: With the patient in upright position, each diaphragm excursion was fluoroscopically observed in full inspiration, expiration and sniff testing : Total fluoroscopy time 26 seconds FINDINGS: The right diaphragm is mildly elevated demonstrates mild paresis on inspiration and sniff testing. The left diaphragm is normally positioned and demonstrate normal motion on full inspiration, expiration and sniff testing. IMPRESSION: Mild paresis-right diaphragm. Interpreted and Authenticated by: Gunner Villavicencio 11/07/22
--- NOTE | 2022-11-07 10:29 | Internal Med Progress Note ---
SUBJECTIVE Subjective Patient information: Note initiated : 11/07/22 at 10:27 am Service Date, if different from initiated Date: [] Patient: Adam Winkler a 67 y/o M admitted on 11/02/22 for surgical Debridement, Pulse Lavage Irrigation, . Chief Complaint: [] Principal diagnosis: chronic left foot diabetic infected ulcer Interval history: History of present illness: Mr. Winkler is a 67 year old M Presents today after surgical debridement of left diabetic foot wound/ulcer stage IV and left great toe. This patient is been following up in wound care with Dweey Fuentes for about a year and presented today for Dr. Lazar to do a debridement and bone culture as it is felt he has osteomyelitis. Dr. Lazar requested admission for further IV antibiotics for osteomyelitis. Patient denies fevers or chills. Pain updated labs. Patient has history of diabetes with neuropathy history of stroke chronic pain. He was recently started on oxygen at night and has felt that he probably has obstructive sleep apnea but he has not had a special sleep study yet. He wears 2 L of oxygen at night only not during the day. 11/03 No overnight event or new complaints. Leukocytosis improving. Anemia present. Significantly elevated ESR 96. Dr. Davis said the wound went down to the bone. 11/04 Patient feeling well today. No overnight event or new complaints. Awaiting surgical wound and bone cultures. ID following and continue current antibiotics until cultures resulted. 11/05 No significant events overnight, yesterday infectious disease recommended starting cefepime and discontinued ceftriaxone given the culture results showing a Pseudomonas. The patient continues on vancomycin as well. Awaiting PICC placement for long-term outpatient IV antibiotic. 11/06 Vital stable overnight, blood culture showing no growth after 3 days, awaiting PICC line placement. Changed analgesics to Dilaudid instead of morphine which the patient says is not working very well for his chronic back pain now exacerbated likely due to inactivity. 11/07 No significant events overnight, vital stable. PICC line placement will be attempted today at bedside. Pulmonology consulted for concerns of hypoxia, COPD and probable sleep apnea. Pulmonology recommended a fluoroscopy of the diaphragm which was ordered and we will also obtain pulmonary function testing. Physical exam Head: Atraumatic, normal inspection. Eyes: normal appearance, no scleral icterus. Neck: full ROM Respiratory: no respiratory distress. Cardiovascular: normal rate and rhythm, S1, S2. GI/Abdominal: soft, nontender, no guarding. Extremities: Left foot covered in bandage and Keivn wrap Neurological: CN II-XII intact, intact motor, intact sensation. Psychiatric: normal mood. Skin: warm, normal color Constitutional Vitals: Vital Signs Temp Pulse Resp BP Pulse Ox O2 Del Method O2 Flow Rate 97.9 F 86 18 140/93 93 Room Air 2 11/07/22 07:47 11/07/22 07:47 11/07/22 07:47 11/07/22 07:47 11/07/22 07:47 11/07/22 07:47 11/06/22 03:00 Period Temp Pulse Resp BP Sys/Castaneda Pulse Ox O2 Del Method O2 Flow Rate Last 24 Hr 97.9 F-98.4 F 63-92 18-20 118-149/74-93 93-98 Room Air-Room Air Intake and Output 11/06/22 11/07/22 11/07/22 19:59 03:59 11:59 Intake Total 1260 500 934 Output Total 900 450 Balance 360 500 484 Weight 108.862 kg Intake & Output: Intake & Output 11/06/22 11/07/22 11/07/22 19:59 03:59 11:59 Intake Total 1260 500 934 Output Total 900 450 Balance 360 500 484 Weight 108.862 kg Intake: IV 500 500 Vancomycin 1,250 mg In Sodium 500 500 Chloride 0.9% 500 ml @ 333.3 mls/hr IV Q12H [facility] Rx#: [id number] Oral 760 934 Output: Void Amount 900 450 Other: Meal Dinner Breakfast Percent of Meal Consumed 100% 100% Feeding Ability Independent Independent Urine Appearance Clear Clear Urine Color Yellow Yellow Urine Odor Normal Stool Size Small Stool Color Brown Stool Consistency Formed # Voids 1 # Bowel Movements 1 OBJ DATA Labs 11/07/22 05:03 11/07/22 05:02 Labs: Abnormal Lab Results 11/07/22 11/07/22 05:03 05:02 RBC 4.51 L Hgb 11.8 L Hct 37.6 L Eos % (Auto) 13.0 H Eos # (Auto) 1.13 H Anion Gap 7.0 L GGT 76 H C-Reactive Protein 1.80 H Meds: Medications Acetaminophen (Acetaminophen 325 Mg Tablet) 650 mg PO Q6HP PRN; Protocol PRN Reason: Per Pain Protocol/Fever > 101 Albuterol/Ipratropium (Ipratropium/Albuterol 3 Ml Ampul.Neb) 3 ml NEB Q4HP PRN PRN Reason: Shortness Of Breath Aspirin (Aspirin 81 Mg Tab.Chew) 81 mg PO DAILY [facility] Last Admin: 11/07/22 09:09 Dose: 81 mg Atorvastatin Calcium (Atorvastatin 10 Mg Tablet) 5 mg PO DAILY [facility] Last Admin: 11/07/22 09:09 Dose: 5 mg Cefepime HCl (Cefepime 2 Gm Vial) 2 gm IV Q8H [facility]; Protocol Last Admin: 11/07/22 05:36 Dose: 2 gm Clopidogrel Bisulfate (Clopidogrel 75 Mg Tablet) 75 mg PO QDAY [facility] Last Admin: 11/07/22 09:09 Dose: 75 mg Dextrose (Dextrose 50% 50 Ml Vial) 0 ml IV UD PRN PRN Reason: Per Sliding Scale Diagnostic Test (Pha) (Accu-Chek 1 Each Strip) 1 each FS ACHS [facility] Last Admin: 11/07/22 07:45 Dose: 1 each Docusate Sodium (Docusate Sodium 100 Mg Capsule) 100 mg PO BID [facility] Last Admin: 11/07/22 09:09 Dose: 100 mg Enoxaparin Sodium (Enoxaparin 40 Mg/0.4 Ml Syringe) 40 mg SQ DAILY [facility] Last Admin: 11/07/22 09:08 Dose: 40 mg Glucose (Dextrose 31 Gm Oral.Susp) 15 gm PO PRN PRN PRN Reason: Hypoglycemia Heparin Sodium (Porcine) (Heparin Flush 10 Units/Ml 5 Ml Syringe) 2 ml IV Q12 [facility] Last Admin: 11/07/22 09:47 Dose: Not Given Hydromorphone HCl (Hydromorphone 0.5 Mg/0.5 Ml Syringe) 0.5 mg IV Q2HP PRN; Protocol PRN Reason: Per Pain Protocol Last Admin: 11/07/22 07:57 Dose: 0.5 mg Potassium Chloride 40 meq/ (Dextrose) 520 mls @ 130 mls/hr IV UD PRN PRN Reason: Potassium < 3 Magnesium Sulfate (Magnesium Sulfate) 2 gm in 50 mls @ 50 mls/hr IV UD PRN PRN Reason: Magnesium </= 1.6 Gentamicin Sulfate 40 mg/Clindamycin Phosphate 300 mg/Sodium Chloride 503 mls @ 0 mls/hr IRR Q24H [facility] Last Admin: 11/06/22 20:25 Dose: 1 mls/hr Vancomycin HCl 1,250 mg/ (Sodium Chloride) 500 mls @ 333.3 mls/hr IV Q12H [facility] Last Infusion: 11/07/22 00:25 Dose: Infused Insulin Glargine (Insulin Glargine, Human 1 Unit/0.01 Ml) 50 unit SQ BID [facility] Last Admin: 11/07/22 09:09 Dose: 50 units Insulin Human Lispro (Insulin Lispro 1 Unit/0.01 Ml Unit) 0 unit SQ ACHS [facility]; Protocol Last Admin: 11/07/22 07:46 Dose: Not Given Mupirocin (Mupirocin Oint 2% 22gm) 1 dose NARES BID [facility] Last Admin: 11/07/22 09:08 Dose: 1 dose Ondansetron HCl (Ondansetron 4 Mg/2 Ml Vial) 4 mg IV Q4HP PRN PRN Reason: Nausea And Vomiting Oxycodone/Acetaminophen (Oxycodone/Apap 5/325mg Tablet) 1 - 2 tab PO Q6HP PRN; Protocol PRN Reason: Per Pain Protocol Last Admin: 11/07/22 03:56 Dose: 2 tab Polyethylene Glycol (Polyethylene Glycol 3350 17 Gm Packet) 17 gm PO DAILYP PRN PRN Reason: Constipation Potassium Chloride (Potassium Chloride 20 Meq Tablet) 40 meq PO UD PRN PRN Reason: Potssium is 3-3.5 Potassium Chloride (Potassium Chloride 20 Meq Tablet) 40 meq PO UD PRN PRN Reason: Potassium < 3 Senna (Sennosides 1 Tablet) 2 tab PO DAILYP PRN PRN Reason: Constipation Sodium Chloride (0.9 % Sodium Chloride 10 Ml Syringe) 10 ml IV Q8 [facility] Last Admin: 11/07/22 05:36 Dose: 10 ml Sodium Chloride (0.9 % Sodium Chloride 10 Ml Syringe) 10 ml IV Q12 [facility] Last Admin: 11/07/22 09:47 Dose: 10 ml Sodium Chloride (0.9 % Sodium Chloride 10 Ml Syringe) 10 ml IV UD PRN PRN Reason: FLUSH Vancomycin HCl (Vancomycin Per Pharmacy) 1 order IV UD [facility]; Protocol A/P Narrative A/P Narrative: Assessment: 67-year-old male with a history of hyperlipidemia, type 2 diabetes mellitus, COPD, CVA, chronic anemia, chronic pain, concern for obstructive sleep apnea, nocturnal hypoxia requiring oxygen supplementation of 2 L/min admitted for left heel osteomyelitis. *Left heel diabetic wound/osteomyelitis: s/p surgical debridement and bone biop sy (11/02) -leukocytosis improved *DM w/neuropathy: -a1c 7.6 *COPD *h/o CVA: on asa/plavix *HLD: *Chronic pain: Follows with pain clinic *Anemia: *Possible RAVEN *Nocturnal hypoxia P: -Vancomycin IV per pharmacy and cefepime 2 g IV every 8 hours. -PICC line placement -Pulmonology consult, x-ray fluoroscopy of diaphragm, pulmonary function study. -Analgesics -ID following for osteomyelitis, recommended 4 weeks antibiotic treatment. -Dr. Young for wound care -cont asa/plavix/statin -ssi -pt/ot -CM for placement needs -ppx: lovenox Plan of Treatment: Plan: Continue present treatment. Await developments. Await input from Pulmonology AND Case management. Will be following patient over w/e. Time Spent With Patient Time: Total time spent is greater than 50% in coordination of care (as documented) at patient's floor/unit and/or counseling patient: QUALITY VTE Deep Vein Thrombosis/Pulmonary Embolism Present on Admission: No
--- NOTE | 2022-11-07 10:34 | XRay Report ---
CLINICAL INFORMATION: PICC line placement COMPARISON: None. TECHNIQUE: Portable FINDINGS: The heart size, mediastinum and pulmonary vessels are unremarkable. PICC line tip is overlying the tricuspid valve plane. Nurses were instructed to withdraw the line 5 cm. Mild bibasilar atelectasis noted.. There are no effusions. The bones and soft tissues are within normal limits. IMPRESSION: Mild bibasilar atelectasis. Interpreted and Authenticated by: Gunner Villavicencio 11/07/22
[2022-11-07] MEDS ORDERED: morphine 4 MG/ML VIAL IV PRN (10:46)
[2022-11-07] MEDS: VANCOMYCIN 1,250 MG in 0.9 % SODIUM CHLORIDE 500 ML IV SCH (11:05)
[2022-11-07] MEDS: GENTAMICIN SULFATE 40 MG, CLINDAMYCIN 300 MG in SODIUM CHLORIDE IRRIG SOLUTION 500 ML IRR SCH (11:06)
--- NOTE | 2022-11-07 11:30 | Discharge Summary ---
Discharge Provider Provider IMPORTANT FOLLOW-UP INFORMATION FOR PCP: Patient information: Note initiated : 11/07/22 at 11:29 am Service Date, if different from initiated Date: [] Patient: Adam Winkler 67 y/o M admitted on 11/02/22 for surgical Debridement, Pulse Lavage Irrigation, . Chief Complaint: [] Date of admission: 11/02/22 15:41 Discharge date: 11/07/22 Primary care physician: Jeferson Nassar Consults: 11/02/22 Consult to Physician [CONS] Routine Comment: COPD. Home O2 NC. Consulting Provider: Chester Britton Reason For Exam: Physician to Consult, left heel Osteomyelitis 11/02/22 15:16 Consult to Physician [CONS] Routine Comment: Consulting Provider: Santiago Mccarty Reason For Exam: Physician to Consult 11/02/22 15:44 Consult to Physician [CONS] Routine Comment: Consulting Provider: Deep Lazar Reason For Exam: Physician to Consult 11/02/22 16:24 Consult to Physician [CONS] Routine Comment: Transfer care / Hospitalist Physician Consulting Provider: Santiago Mccarty Reason For Exam: Physician to Consult 11/04/22 13:23 Consult to Physician [CONS] Routine Comment: ?? Clearance for HBO in future. Consulting Provider: Chester Britton Reason For Exam: Physician to Consult 11/07/22 08:20 Consult to Physician [CONS] Routine Comment: Consulting Provider: Chester Britton Reason For Exam: Physician to Consult COURSE Hospital Course Hospital course: Mr. Winkler is a 67 year old M Present to the ED after surgical debridement of left diabetic foot wound/ulcer stage IV and left great toe. This patient is been following up in wound care with Dewey Fuentes for about a year and presented today for Dr. Lazar to do a debridement and bone culture as it is felt he has osteomyelitis. Dr. Lazar requested admission for further IV antibiotics for osteomyelitis. Patient denies fevers or chills. Pain updated labs. Patient has history of diabetes with neuropathy history of stroke chronic pain. He was recently started on oxygen at night and has felt that he probably has obstructive sleep apnea but he has not had a special sleep study yet. He wears 2 L of oxygen at night only not during the day. 11/03 No overnight event or new complaints. Leukocytosis improving. Anemia present. Significantly elevated ESR 96. Dr. Davis said the wound went down to the bone. 11/04 Patient feeling well today. No overnight event or new complaints. Awaiting surgical wound and bone cultures. ID following and continue current antibiotics until cultures resulted. 11/05 No significant events overnight, yesterday infectious disease recommended starting cefepime and discontinued ceftriaxone given the culture results showing a Pseudomonas. The patient continues on vancomycin as well. Awaiting PICC placement for long-term outpatient IV antibiotic. 11/06 Vital stable overnight, blood culture showing no growth after 3 days, awaiting PICC line placement. Changed analgesics to Dilaudid instead of morphine which the patient says is not working very well for his chronic back pain now exacerbated likely due to inactivity. 11/07 No significant events overnight, vital stable. PICC line was placed for long- term IV antibiotic treatment of osteomyelitis. Pulmonology consulted for concerns of hypoxia, COPD and probable sleep apnea. Pulmonology recommended a fluoroscopy of the diaphragm and pulmonary function studies. The x-ray fluoroscopy was performed and pulmonary function studies scheduled for the afternoon however the patient developed rude behavior towards staff therefore he will discharge to snf facility and a referral will be placed for the patient to see pulmonology outpatient. Patient will discharge on daptomycin and cefepime for osteomyelitis, the current plan is to treat for at least 4 weeks. The patient will follow up with infectious disease in that tele infectious disease clinic for further further management and also monitoring of weekly labs while receiving IV antibiotic treatment. Weekly labs will include CBC, BMP, LFTs, CRP and CK. Physical exam Head: Atraumatic, normal inspection. Eyes: normal appearance, no scleral icterus. Neck: full ROM Respiratory: no respiratory distress. Cardiovascular: normal rate and rhythm, S1, S2. GI/Abdominal: soft, nontender, no guarding. Extremities: Left foot covered in bandage and Kevin wrap Neurological: CN II-XII intact, intact motor, intact sensation. Psychiatric: normal mood. Skin: warm, normal color Discharge diagnosis: Osteomyelitis of left heel Secondary discharge diagnosis: Type 2 diabetes mellitus Time Spent with Patient Time attestation: Total time spent providing and/or coordinating discharge services: Time spent: Greater than 30 minutes EXAM Constitutional Vitals: Temp Pulse Resp BP Pulse Ox O2 Del Method O2 Flow Rate 97.9 F 86 18 140/93 93 Room Air 2 11/07/22 07:47 11/07/22 07:47 11/07/22 07:47 11/07/22 07:47 11/07/22 07:47 11/07/22 07:47 11/06/22 03:00 Discharge Data Data Completed and Pending Labs on day of discharge: Labs from last 24 hours 11/07/22 11/07/22 05:03 05:02 WBC 8.7 RBC 4.51 L Hgb 11.8 L Hct 37.6 L MCV 83.4 MCH 26.2 MCHC 31.4 RDW 12.6 Plt Count 392 MPV 9.6 Immature Gran % (Auto) 0.2 Neut % (Auto) 55.0 Lymph % (Auto) 21.7 [place] % (Auto) 9.4 Eos % (Auto) 13.0 H Baso % (Auto) 0.7 Lymph # (Auto) 1.89 [place] # (Auto) 0.82 Eos # (Auto) 1.13 H Baso # (Auto) 0.06 Immature Gran # 0.02 Absolute Neutrophils 4.78 Sodium 136 Potassium 4.1 Chloride 100 Carbon Dioxide 29 Anion Gap 7.0 L BUN 17 Creatinine 0.7 GFR Calculation 96 Glucose 98 Uric Acid 5.3 Calcium 9.0 Phosphorus 3.1 Magnesium 1.9 Total Bilirubin 0.2 Direct Bilirubin < 0.2 GGT 76 H AST 23 ALT 17 Alkaline Phosphatase 59 Lactate Dehydrogenase 184 C-Reactive Protein 1.80 H Total Protein 6.7 Albumin 3.4 Globulin 3.3 Albumin/Globulin Ratio 1.0 Triglycerides 119 Preliminary micro results at discharge 11/02/22 16:04 Blood Culture - Preliminary Blood 11/02/22 16:03 Blood Culture - Preliminary Blood Discharge Plan Patient/Caregiver Discharge Instructions Activity: increase activity as tolerated Diet: Consistent Carbohydrate Prescriptions: New acetaminophen 325 mg Tablet 650 mg PO Q6HP PRN (Reason: Per Pain Protocol/Fever > 101) Qty: 30 0RF cefepime 2 gram Recon Soln 2 g IV Q8H 23 Days Qty: 70 0RF sennosides [Senna Lax] 8.6 mg Tablet 2 tab PO DAILYP PRN (Reason: Constipation) Qty: 30 0RF polyethylene glycol 3350 [HealthyLax] 17 gram Powder In Packet 17 gm PO DAILYP PRN (Reason: Constipation) Qty: 30 0RF oxycodone-acetaminophen 5-325 mg Tablet 1 - 2 tab PO Q6HP PRN (Reason: Per Pain Protocol) Qty: 7 0RF Continued Narcan 4 mg/actuation spray,non-aerosol 4 mg intranasal Q2M Qty: 2 0RF Rx Instructions: spray 1 dose into ONE nostril; alternate nostrils w each dose until help arrives Lantus U-100 Insulin 100 unit/mL solution 50 unit SUB-Q BID Rx Instructions: 100 units/ml subcut daily PRN; metformin 1,000 mg tablet 500 mg PO BID Nucynta 50 mg tablet 50 - 100 mg PO Q4H MDD 8 PRN (Reason: pain) Qty: 220 0RF Rx Instructions: *MUST LAST 30 DAYS* Start 4/6 clopidogrel [Plavix] 75 mg tablet 75 mg PO QDAY cetirizine [Aller-Bhavesh] 10 mg tablet 20 mg PO HS aspirin 81 mg Tablet,Delayed Release (Dr/Ec) 81 mg PO QDAY docusate sodium 100 mg Capsule 100 mg PO QDAY Discontinued pravastatin 20 mg tablet 20 mg PO QDAY Other Ambulatory Orders: Outpatient PICC Care (Daily) Location: None Selected Ordered By: Devan Garcia Physical Therapy at Discharge - General (Routine) Location: None Selected Ordered By: Devan Garcia Follow Up Plan Follow up with: Deep Lazar MD [Physician] - 11/04/22 9:20 am Patient Disposition: Xfer SNF Plan of Treatment: Plan: Continue present treatment. Await developments. Await input from Pulmonology AND Case management. Will be following patient over w/e. Rehab Potential: Fair I certify that the patient requires SNF services: Yes Overall status at discharge: patient is progressing back to baseline QUALITY VTE Deep Vein Thrombosis/Pulmonary Embolism Present on Admission: No
--- NOTE | 2022-11-07 13:09 | General Surgery Progress Note ---
SUBJECTIVE Subjective Patient information: Note initiated : 11/07/22 at 12:58 pm Service Date, if different from initiated Date: [] Patient: Adam Winkler 67 y/o M admitted on 11/02/22 for surgical Debridement, Pulse Lavage Irrigation, . Chief Complaint: [] Principal diagnosis: chronic left foot diabetic infected ulcer Additional PMFSH (Level 3 Only): Patient seen with Connie Goodwin Wound Care Nurse [employer] and Floor nurse. Examined wounds. Progress and POC reviewed with Dr. Garcia, hospitalist MD. Constitutional Vitals: Vital Signs Temp Pulse Resp BP Pulse Ox O2 Del Method O2 Flow Rate 98.2 F 95 H 18 152/81 97 Room Air 2 11/07/22 11:55 11/07/22 11:55 11/07/22 11:55 11/07/22 11:55 11/07/22 11:55 11/07/22 11:55 11/06/22 03:00 Period Temp Pulse Resp BP Sys/Castaneda Pulse Ox O2 Del Method O2 Flow Rate Last 24 Hr 97.9 F-98.4 F 63-95 18-20 118-152/74-93 93-98 Room Air-Room Air Intake and Output 11/07/22 11/07/22 11/07/22 03:59 11:59 19:59 Intake Total 500 934 Output Total 450 Balance 500 484 Weight 240 lb Intake & Output: Intake & Output 11/07/22 11/07/22 11/07/22 03:59 11:59 19:59 Intake Total 500 934 Output Total 450 Balance 500 484 Weight 240 lb Intake: IV 500 Vancomycin 1,250 mg In Sodium 500 Chloride 0.9% 500 ml @ 333.3 mls/hr IV Q12H [facility] Rx#: [id number] Oral 934 Output: Void Amount 450 Other: Meal Breakfast Percent of Meal Consumed 100% Feeding Ability Independent Urine Appearance Clear Urine Color Yellow Exam: AVSS. No change VIKY. LEFT posterior heel wound site is improving. LEFT 1st toe DFU dorsal surface is improving. Discharge plans noted and agreed. Await OUT PATIENT consult with Lasting Room Machine Operator. Await OUT PATIENT f/u with Infectious diseases. Await OUT PATIENT f/u at wound clinic, For continuity of care and further management. A/P Narrative A/P Narrative: Assessment: Satisfactory post op progress. Plan of Treatment: Plan: Continue present treatment. Continue IV antibiotics / wound care. Patient will need further debridement Possible Split thickness skin grafts. Will await pulmonology evaluation AND clearance for possible HBOT. POC d/w patient and . They concur. Time Spent With Patient Time: Total time spent is greater than 50% in coordination of care (as documented) at patient's floor/unit and/or counseling patient: Initial: Total time with patient: 40 - 54 minutes
== END 2022-11-07 13:36 | DRG 623 ==
LOC: SUR 06:07 → MEDSUR 09:41
PROVIDERS: ADMIT Internal Medicine; ATTEND Internal Medicine

== ENCOUNTER 2023-03-11 16:29 | Observation (INO) ==
[2023-03-11] MEDS ORDERED: IOPAMIDOL 100 ML BOTTLE IV ONE (16:30)
[2023-03-11 16:57] LABS: POC Calcium, Ionized 1.26 (1.16-1.32); POC Creatinine 0.6 (0.6-1.2); POC Potassium 4.6 (3.3-5.1)
[2023-03-11] MEDS ORDERED: 0.9 % SODIUM CHLORIDE 1,000 ML IV ONE ×3 (16:58→19:21)
[2023-03-11] MEDS ORDERED: ACETAMINOPHEN 1,000 MG/100 ML BAG IV ONE (16:58)
[2023-03-11 17:39] LABS: Basophils # (Auto) 0.06 K/mcL (0.00-0.30); Basophils % (Auto) 0.3 % (0.0-2.0); Eosinophils # (Auto) 0.08 K/mcL (0.00-0.70); Eosinophils % (Auto) 0.4 % (0.0-7.0); Hematocrit 45.4 % (40.1-51.0); Hemoglobin 14.4 g/dL (13.7-17.5); Lymphocytes # (Auto) 1.41 K/mcL (1.50-4.80); Lymphocytes % (Auto) 6.2 % (15.5-49.0); Mean Cell Volume 80.9 fL (80.0-100.0); Mean Corpuscular HGB Conc 31.7 g/dL (31.0-36.0); Mean Platelet Volume 9.9 fL (8.8-12.5); Monocytes % (Auto) 5.3 % (1.0-12.0); Neutrophils % (Auto) 87.1 % (38.0-78.0); Platelet Count 344 K/mcL (140-440); RBC 5.61 M/mcL (4.63-6.08); Red Cell Distribution Width 14.4 % (11.5-14.5); WBC 22.8 K/mcL (4.5-11.0)
[2023-03-11 17:57] LABS: ALT/SGPT 15 U/L (<40); AST/SGOT 24 U/L (<40); Albumin 3.8 gm/dL (3.2-5.2); Alkaline Phosphatase 62 U/L (39-117); Bilirubin,Direct < 0.2 mg/dL (0-0.3); Bilirubin,Total 0.3 mg/dL (0.1-1.0); Globulin 3.8 gm/dL (2.2-3.7)
[2023-03-11] MEDS ORDERED: fentaNYL 100 MCG/2 ML VIAL IV ONE (18:01)
[2023-03-11 18:14] LABS: Appearance,Urine HAZY (Clear); Bilirubin,Urine Negative (Negative); Color,Urine YELLOW; Culture Indicated,Urine No; Glucose,Urine (UA) Negative (Negative); Ketones,Urine Negative (Negative); Leukocyte Esterase,Urine Negative /uL (Negative); Nitrate,Urine Negative (Negative); Protein,Urine 100 mg/dL (Negative); Specific Gravity,Urine 1.017 (1.000-1.035); Urine Blood Negative (Negative); Urine RBC < 1 /hpf (0-3); Urine Squamous Epithelial Cell 1 /hpf (0-4); Urine WBC 1 /hpf (0-4); Urobilinogen,Urine Negative
[2023-03-11] MEDS ORDERED: PIPERACILLIN SODIUM/TAZOBACTAM 3.375 GM in DEXTROSE 5% IN WATER 50 ML IV ONE (18:34)
[2023-03-11] MEDS ORDERED: VANCOMYCIN PER PHARMACY IV ONE ×2 (19:30→21:33)
[2023-03-11] MEDS ORDERED: VANCOMYCIN 1,500 MG in 0.9 % SODIUM CHLORIDE 500 ML IV ONE (20:30)
[2023-03-11 21:07] LABS: Band Neutrophils % 8 % (0-10); Eosinophils % (Manual) 2 % (0-7); Lymphocytes % 7 % (15-49); Monocytes % (Manual) 3 % (1-12); Platelet Estimate NORMAL (Normal); RBC Morphology NORMAL (Normal); Segmented Neutrophils % 80 % (38-78)
[2023-03-11] MEDS ORDERED: POTASSIUM CHLORIDE 40 MEQ in DEXTROSE 5% IN WATER 500 ML IV PRN (21:33)
[2023-03-11] MEDS ORDERED: 0.9 % SODIUM CHLORIDE 1,000 ML IV SCH (21:33)
[2023-03-11] MEDS ORDERED: METFORMIN 1000 MG PO SCH (21:33)
[2023-03-11] MEDS ORDERED: SENNOSIDES 1 TABLET PO PRN (21:33)
[2023-03-11] MEDS ORDERED: IPRATROPIUM/ALBUTEROL 3 ML AMPUL.NEB NEB PRN (21:33)
[2023-03-11] MEDS ORDERED: MAGNESIUM SULFATE 2 GM/50 ML BAG IV PRN (21:33)
[2023-03-11] MEDS ORDERED: POLYETHYLENE GLYCOL 3350 17 GM PACKET PO PRN (21:33)
[2023-03-11] MEDS ORDERED: DEXTROSE 31 GM ORAL.SUSP PO PRN (21:33)
[2023-03-11] MEDS ORDERED: ONDANSETRON 4 MG/2 ML VIAL IV PRN (21:33)
[2023-03-11] MEDS ORDERED: ACETAMINOPHEN 325 MG TABLET PO PRN (21:33)
[2023-03-11] MEDS ORDERED: POTASSIUM CHLORIDE 20 MEQ TABLET PO PRN ×2 (21:33)
[2023-03-11] MEDS ORDERED: HYDROcodone/APAP (PP) 7.5/325MG TABLET (#4) PO PRN (21:33)
[2023-03-11] MEDS ORDERED: DEXTROSE 50% 50 ML VIAL IV PRN (21:33)
[2023-03-11] MEDS ORDERED: PRAVASTATIN 40 MG TABLET PO SCH (21:33)
[2023-03-11] MEDS ORDERED: HYDROCODONE/APAP 7.5/325MG TABLET PO ONE (22:45)
[2023-03-11] MEDS: HYDROCODONE/APAP 7.5/325MG TABLET PO PRN (22:48)
[2023-03-11] MEDS ORDERED: CEFEPIME 1 GM VIAL ONE (22:56)
[2023-03-11] MEDS: DOCUSATE SODIUM 100 MG CAPSULE PO SCH (23:06)
[2023-03-11] MEDS: CETIRIZINE 10 MG TABLET PO SCH (23:07)
[2023-03-11] MEDS: CEFEPIME 2 GM VIAL IV SCH (23:12)
[2023-03-11] MEDS: INSULIN LISPRO 1 UNIT/0.01 ML UNIT SQ SCH (23:16)
[2023-03-11] MEDS: 0.9 % SODIUM CHLORIDE 10 ML SYRINGE IV SCH (23:17)
[2023-03-12] MEDS ORDERED: HYDROCODONE/APAP 7.5/325MG TABLET PO ONE (05:42)
[2023-03-12] MEDS: HYDROCODONE/APAP 7.5/325MG TABLET PO PRN ×2 (05:45→19:34)
[2023-03-12] MEDS: 0.9 % SODIUM CHLORIDE 10 ML SYRINGE IV SCH ×3 (05:46→21:43)
[2023-03-12] MEDS ORDERED: CEFEPIME 1 GM VIAL ONE (05:52)
[2023-03-12] MEDS: CEFEPIME 2 GM VIAL IV SCH ×3 (05:56→21:38)
[2023-03-12 07:00] LABS: Basophils # (Auto) 0.06 K/mcL (0.00-0.30); Basophils % (Auto) 0.3 % (0.0-2.0); Eosinophils % (Auto) 0.5 % (0.0-7.0); Hematocrit 40.4 % (40.1-51.0); Hemoglobin 12.7 g/dL (13.7-17.5); Lymphocytes # (Auto) 1.28 K/mcL (1.50-4.80); Mean Cell Volume 83.5 fL (80.0-100.0); Mean Corpuscular HGB Conc 31.4 g/dL (31.0-36.0); Mean Platelet Volume 10.1 fL (8.8-12.5); Monocytes # (Auto) 1.24 K/mcL (0.10-0.90); Monocytes % (Auto) 5.9 % (1.0-12.0); Neutrophils % (Auto) 86.8 % (38.0-78.0); Platelet Count 275 K/mcL (140-440); RBC 4.84 M/mcL (4.63-6.08); Red Cell Distribution Width 14.6 % (11.5-14.5); WBC 21.2 K/mcL (4.5-11.0)
[2023-03-12] MEDS: INSULIN LISPRO 1 UNIT/0.01 ML UNIT SQ SCH ×4 (07:27→21:43)
[2023-03-12 07:34] LABS: ALT/SGPT 14 U/L (<40); AST/SGOT 32 U/L (<40); Albumin 3.2 gm/dL (3.2-5.2); Alkaline Phosphatase 55 U/L (39-117); Bilirubin,Direct < 0.2 mg/dL (0-0.3); Bilirubin,Total 0.4 mg/dL (0.1-1.0); Blood Urea Nitrogen 10 mg/dL (8-23); Calcium 8.6 mg/dL (8.6-10.4); Carbon Dioxide 24 mmol/L (22-30); Chloride 102 mmol/L (96-108); Globulin 3.1 gm/dL (2.2-3.7); Glomerular Filtration Rate 102; Glucose 73 mg/dL (70-105); Lactate Dehydrogenase 205 U/L (135-225); Phosphorous 3.1 mg/dL (2.5-4.5); Triglycerides 104 mg/dL (<150); Uric Acid 4.8 mg/dL (2.5-8.0)
[2023-03-12] MEDS ORDERED: VANCOMYCIN PER PHARMACY IV SCH (07:45)
[2023-03-12] MEDS: INSULIN GLARGINE, HUMAN 1 UNIT/0.01 ML SQ SCH (08:41)
[2023-03-12] MEDS: DOCUSATE SODIUM 100 MG CAPSULE PO SCH ×2 (08:41→21:38)
[2023-03-12] MEDS: ASPIRIN 81 MG TAB.CHEW PO SCH (08:41)
[2023-03-12] MEDS: ENOXAPARIN 40 MG/0.4 ML SYRINGE SQ SCH (08:41)
[2023-03-12] MEDS: metFORMIN 500 MG TABLET PO SCH ×2 (08:41→17:30)
[2023-03-12] MEDS: CLOPIDOGREL 75 MG TABLET PO SCH (08:41)
[2023-03-12] MEDS: Tiotropium Bromide [Spiriva Respimat] 2.5 mcg Inhaler INH SCH (08:42)
[2023-03-12] MEDS: VANCOMYCIN 1,500 MG in 0.9 % SODIUM CHLORIDE 500 ML IV SCH ×2 (10:42→21:38)
[2023-03-12] MEDS: TAPENTADOL 50 MG PO PRN (19:38)
[2023-03-12] MEDS ORDERED: SIMVASTATIN 20 MG TABLET PO SCH (21:00)
[2023-03-12] MEDS: CETIRIZINE 10 MG TABLET PO SCH (21:38)
[2023-03-13] MEDS: TAPENTADOL 50 MG PO PRN (02:36)
[2023-03-13] MEDS: HYDROCODONE/APAP 7.5/325MG TABLET PO PRN (02:36)
[2023-03-13] MEDS: CEFEPIME 2 GM VIAL IV SCH ×2 (05:00→14:47)
[2023-03-13] MEDS: 0.9 % SODIUM CHLORIDE 10 ML SYRINGE IV SCH ×2 (05:00→14:47)
[2023-03-13 06:40] LABS: Basophils # (Auto) 0.05 K/mcL (0.00-0.30); Basophils % (Auto) 0.4 % (0.0-2.0); Eosinophils # (Auto) 0.77 K/mcL (0.00-0.70); Eosinophils % (Auto) 6.8 % (0.0-7.0); Hematocrit 43.4 % (40.1-51.0); Hemoglobin 13.6 g/dL (13.7-17.5); Lymphocytes # (Auto) 2.14 K/mcL (1.50-4.80); Lymphocytes % (Auto) 18.9 % (15.5-49.0); Mean Cell Volume 82.7 fL (80.0-100.0); Mean Corpuscular HGB Conc 31.3 g/dL (31.0-36.0); Mean Platelet Volume 10.3 fL (8.8-12.5); Monocytes # (Auto) 1.17 K/mcL (0.10-0.90); Monocytes % (Auto) 10.4 % (1.0-12.0); Neutrophils % (Auto) 63.2 % (38.0-78.0); Platelet Count 289 K/mcL (140-440); RBC 5.25 M/mcL (4.63-6.08); Red Cell Distribution Width 14.6 % (11.5-14.5); WBC 11.3 K/mcL (4.5-11.0)
[2023-03-13 07:00] LABS: Blood Urea Nitrogen 10 mg/dL (8-23); Calcium 8.9 mg/dL (8.6-10.4); Carbon Dioxide 23 mmol/L (22-30); Chloride 103 mmol/L (96-108); Glomerular Filtration Rate 96; Glucose 79 mg/dL (70-105)
[2023-03-13] MEDS: INSULIN LISPRO 1 UNIT/0.01 ML UNIT SQ SCH ×3 (07:37→16:19)
[2023-03-13] MEDS: ENOXAPARIN 40 MG/0.4 ML SYRINGE SQ SCH (08:27)
[2023-03-13] MEDS: CLOPIDOGREL 75 MG TABLET PO SCH (08:27)
[2023-03-13] MEDS: INSULIN GLARGINE, HUMAN 1 UNIT/0.01 ML SQ SCH (08:27)
[2023-03-13] MEDS: DOCUSATE SODIUM 100 MG CAPSULE PO SCH (08:27)
[2023-03-13] MEDS: metFORMIN 500 MG TABLET PO SCH ×2 (08:27→16:41)
[2023-03-13] MEDS: ASPIRIN 81 MG TAB.CHEW PO SCH (08:27)
[2023-03-13] MEDS: Tiotropium Bromide [Spiriva Respimat] 2.5 mcg Inhaler INH SCH ×2 (08:30)
[2023-03-13] MEDS: VANCOMYCIN 1,500 MG in 0.9 % SODIUM CHLORIDE 500 ML IV SCH (12:02)
[2023-03-13] MEDS ORDERED: TAPENTADOL 50 MG PO PRN (14:30)
== END 2023-03-13 19:01 | disposition home health service (06) ==
LOC: MEDSUR 16:29 → ED 16:29 → MEDSUR 21:26
PROVIDERS: ADMIT Internal Medicine; ATTEND Internal Medicine

== ENCOUNTER 2023-08-17 07:30 | Inpatient (IN) ==
[2023-08-02 10:34] LABS: Basophils # (Auto) 0.05 K/mcL (0.00-0.30); Basophils % (Auto) 0.5 % (0.0-2.0); Eosinophils # (Auto) 0.67 K/mcL (0.00-0.70); Eosinophils % (Auto) 6.9 % (0.0-7.0); Hematocrit 39.7 % (40.1-51.0); Hemoglobin 12.6 g/dL (13.7-17.5); Lymphocytes # (Auto) 2.22 K/mcL (1.50-4.80); Lymphocytes % (Auto) 22.7 % (15.5-49.0); Mean Cell Volume 83.6 fL (80.0-100.0); Mean Corpuscular HGB Conc 31.7 g/dL (31.0-36.0); Mean Platelet Volume 9.3 fL (8.8-12.5); Monocytes # (Auto) 0.83 K/mcL (0.10-0.90); Monocytes % (Auto) 8.5 % (1.0-12.0); Neutrophils % (Auto) 61.2 % (38.0-78.0); Platelet Count 331 K/mcL (140-440); RBC 4.75 M/mcL (4.63-6.08); Red Cell Distribution Width 13.3 % (11.5-14.5); WBC 9.8 K/mcL (4.5-11.0)
[2023-08-02 10:43] LABS: Blood Urea Nitrogen 22 mg/dL (8-23); C-Reactive Protein 3.15 mg/dL (0.03-0.80); Calcium 9.7 mg/dL (8.6-10.4); Carbon Dioxide 29 mmol/L (22-30); Chloride 97 mmol/L (96-108); Glomerular Filtration Rate 86; Glucose 240 mg/dL (70-105)
[2023-08-02 13:15] LABS: Estimated Average Glucose(eAG) 177 mg/dL; Hemoglobin A1C 7.8 % Hgb (4.0-6.0)
[2023-08-02 14:20] LABS: Prothrombin Time 13.9 sec (11.9-14.5)
[~2023-08-17 07:30] MED LIST changes: +CELECOXIB 200 MG CAPSULE PO SCH; +PREGABALIN 75 MG CAPSULE PO SCH; +ceFAZolin 2 GM in DEXTROSE 5% IN WATER 50 ML IV SCH; -cefTRIAXone 1 GM VIAL IV SCH; +oxyCODONE 10 MG TAB.ER.12H PO SCH
[2023-08-17] MEDS ORDERED: IPRATROPIUM/ALBUTEROL 3 ML AMPUL.NEB NEB PRN ×2 (11:00→15:37)
[2023-08-17] MEDS ORDERED: SCOPOLAMINE 1 PATCH PATCH TOPICAL PRN (11:00)
[2023-08-17] MEDS ORDERED: fentaNYL 100 MCG/2 ML VIAL ONE (13:33)
[2023-08-17] MEDS ORDERED: PROPOFOL 200 MG/20 ML VIAL IV ONE ×2 (13:33→16:20)
[2023-08-17] MEDS ORDERED: ONDANSETRON 4 MG/2 ML VIAL ONE (13:33)
[2023-08-17] MEDS ORDERED: PHENYLephrine 1 MG/10 ML SYRINGE (ANEST) ONE (13:58)
[2023-08-17] MEDS ORDERED: BUPIVACAINE 0.5% 50 ML VIAL IJ ONE (15:09)
[2023-08-17] MEDS ORDERED: HYDROmorphone 1 MG/ML SYRINGE ONE (15:09)
[2023-08-17] MEDS ORDERED: ROPIVACAINE HCL/PF 30 ML VIAL IJ ONE (15:16)
[2023-08-17] MEDS ORDERED: METHOCARBAMOL 1,000 MG/10 ML VIAL IV PRN (15:37)
[2023-08-17] MEDS ORDERED: ONDANSETRON 4 MG/2 ML VIAL IV PRN ×2 (15:37→16:00)
[2023-08-17] MEDS ORDERED: NALOXONE HCL 0.4 MG/ML VIAL IV PRN (15:37)
[2023-08-17] MEDS ORDERED: TRANEXAMIC ACID 1,000 MG/10 ML VIAL ONE (15:40)
[2023-08-17] MEDS ORDERED: MAGNESIUM HYDROXIDE 30 ML ORAL.SUSP PO PRN (16:00)
[2023-08-17] MEDS ORDERED: TRANEXAMIC ACID 1,000 MG/10 ML VIAL IV ONE (16:00)
[2023-08-17] MEDS ORDERED: DEXTROSE 50% 50 ML VIAL IV PRN (16:00)
[2023-08-17] MEDS ORDERED: FLEETS ADULT 1 DOSE ENEMA PR PRN (16:00)
[2023-08-17] MEDS ORDERED: POLYETHYLENE GLYCOL 3350 17 GM PACKET PO PRN (16:00)
[2023-08-17] MEDS ORDERED: BISACODYL 10 MG SUPP.RECT PR PRN (16:00)
[2023-08-17] MEDS ORDERED: BENZOCAINE/MENTHOL 1 LOZENGE PO PRN (16:00)
[2023-08-17] MEDS ORDERED: DEXTROSE 31 GM ORAL.SUSP PO PRN (16:00)
[2023-08-17] MEDS ORDERED: CYCLOBENZAPRINE 10 MG TABLET PO PRN (16:05)
[2023-08-17] MEDS: fentaNYL 100 MCG/2 ML VIAL IV PRN ×4 (16:12→16:21)
[2023-08-17] MEDS: LACTATED RINGERS 1,000 ML IV SCH (17:23)
[2023-08-17] MEDS: HYDROmorphone 1 MG/ML SYRINGE IV PRN ×2 (17:44→21:10)
[2023-08-17] MEDS: INSULIN LISPRO 1 UNIT/0.01 ML UNIT SQ SCH ×2 (17:44→21:10)
[2023-08-17] MEDS ORDERED: GABAPENTIN 300 MG CAPSULE PO SCH (21:00)
[2023-08-17] MEDS: CETIRIZINE 10 MG TABLET PO SCH (21:09)
[2023-08-17] MEDS: SENNOSIDES 1 TABLET PO SCH (21:09)
[2023-08-17] MEDS: DOCUSATE SODIUM 100 MG CAPSULE PO SCH (21:09)
[2023-08-17] MEDS: ATORVASTATIN 20 MG TABLET PO SCH (21:09)
[2023-08-17] MEDS: 0.9 % SODIUM CHLORIDE 10 ML SYRINGE IV SCH (21:17)
[2023-08-17] MEDS: ceFAZolin 1 GM VIAL IV SCH (21:21)
[2023-08-18] MEDS: HYDROmorphone 1 MG/ML SYRINGE IV PRN ×4 (03:16→17:03)
[2023-08-18] MEDS: LACTATED RINGERS 1,000 ML IV SCH ×2 (04:42→18:42)
[2023-08-18] MEDS: ceFAZolin 1 GM VIAL IV SCH (04:43)
[2023-08-18] MEDS: 0.9 % SODIUM CHLORIDE 10 ML SYRINGE IV SCH ×3 (05:15→21:03)
[2023-08-18] MEDS: INSULIN LISPRO 1 UNIT/0.01 ML UNIT SQ SCH ×4 (07:53→20:07)
[2023-08-18] MEDS: DOCUSATE SODIUM 100 MG CAPSULE PO SCH ×2 (11:08→21:02)
[2023-08-18] MEDS ORDERED: NON FORMULARY MEDICATION 1 DOSE MISCELL PO PRN (11:50)
[2023-08-18] MEDS: TAPENTADOL 50 MG PO PRN (12:21)
[2023-08-18 21:00] LABS: Basophils # (Auto) 0.03 K/mcL (0.00-0.30); Basophils % (Auto) 0.3 % (0.0-2.0); Eosinophils # (Auto) 0.04 K/mcL (0.00-0.70); Eosinophils % (Auto) 0.3 % (0.0-7.0); Hematocrit 34.8 % (40.1-51.0); Hemoglobin 10.8 g/dL (13.7-17.5); Lymphocytes # (Auto) 1.89 K/mcL (1.50-4.80); Lymphocytes % (Auto) 16.5 % (15.5-49.0); Mean Cell Volume 84.5 fL (80.0-100.0); Mean Platelet Volume 9.1 fL (8.8-12.5); Monocytes # (Auto) 1.36 K/mcL (0.10-0.90); Monocytes % (Auto) 11.9 % (1.0-12.0); Neutrophils % (Auto) 70.7 % (38.0-78.0); Platelet Count 281 K/mcL (140-440); RBC 4.12 M/mcL (4.63-6.08); Red Cell Distribution Width 14.1 % (11.5-14.5); WBC 11.4 K/mcL (4.5-11.0)
[2023-08-18] MEDS: CETIRIZINE 10 MG TABLET PO SCH (21:02)
[2023-08-18] MEDS: ATORVASTATIN 20 MG TABLET PO SCH (21:02)
[2023-08-18] MEDS: SENNOSIDES 1 TABLET PO SCH (21:11)
[2023-08-18 21:18] LABS: ALT/SGPT 9 U/L (<40); AST/SGOT 28 U/L (<40); Albumin 3.3 gm/dL (3.2-5.2); Alkaline Phosphatase 54 U/L (39-117); Bilirubin,Total 0.4 mg/dL (0.1-1.0); Blood Urea Nitrogen 11 mg/dL (8-23); Calcium 8.7 mg/dL (8.6-10.4); Carbon Dioxide 29 mmol/L (22-30); Chloride 100 mmol/L (96-108); Globulin 3.4 gm/dL (2.2-3.7); Glomerular Filtration Rate 90; Glucose 127 mg/dL (70-105)
[2023-08-19] MEDS: ACETAMINOPHEN 1,000 MG/100 ML BAG IV PRN ×2 (00:19→11:57)
[2023-08-19] MEDS: TAPENTADOL 50 MG PO PRN ×5 (01:18→20:18)
[2023-08-19] MEDS: 0.9 % SODIUM CHLORIDE 10 ML SYRINGE IV SCH ×3 (05:03→20:19)
[2023-08-19] MEDS: CLOPIDOGREL 75 MG TABLET PO SCH (08:14)
[2023-08-19] MEDS: DOCUSATE SODIUM 100 MG CAPSULE PO SCH ×2 (08:15→20:19)
[2023-08-19] MEDS: LACTATED RINGERS 1,000 ML IV SCH ×2 (08:41→20:27)
[2023-08-19] MEDS: INSULIN LISPRO 1 UNIT/0.01 ML UNIT SQ SCH ×4 (08:42→20:26)
[2023-08-19] MEDS: SENNOSIDES 1 TABLET PO SCH (20:19)
[2023-08-19] MEDS: CETIRIZINE 10 MG TABLET PO SCH (20:19)
[2023-08-19] MEDS: ATORVASTATIN 20 MG TABLET PO SCH (20:19)
[2023-08-20] MEDS: 0.9 % SODIUM CHLORIDE 10 ML SYRINGE IV SCH ×3 (05:22→20:40)
[2023-08-20] MEDS: TAPENTADOL 50 MG PO PRN ×4 (07:09→20:43)
[2023-08-20] MEDS: ACETAMINOPHEN 1,000 MG/100 ML BAG IV PRN (07:10)
[2023-08-20] MEDS: INSULIN LISPRO 1 UNIT/0.01 ML UNIT SQ SCH ×4 (09:14→20:48)
[2023-08-20] MEDS: DOCUSATE SODIUM 100 MG CAPSULE PO SCH ×3 (09:14→20:43)
[2023-08-20] MEDS: CLOPIDOGREL 75 MG TABLET PO SCH (09:14)
[2023-08-20 09:15] LABS: Hematocrit 34.5 % (40.1-51.0); Hemoglobin 10.7 g/dL (13.7-17.5); Mean Cell Volume 83.3 fL (80.0-100.0); Mean Platelet Volume 9.8 fL (8.8-12.5); Platelet Count 303 K/mcL (140-440); RBC 4.14 M/mcL (4.63-6.08); WBC 13.4 K/mcL (4.5-11.0)
[2023-08-20] MEDS: FOCUS FACTOR PO SCH (09:15)
[2023-08-20 10:21] LABS: Eosinophils % (Manual) 5 % (0-7); Lymphocytes % 19 % (15-49); Monocytes % (Manual) 8 % (1-12); Platelet Estimate NORMAL (Normal); RBC Morphology NORMAL (Normal); Segmented Neutrophils % 68 % (38-78)
[2023-08-20 11:38] LABS: CRP,High Sensitivity 188.4 mg/L (1.0-3.0)
[2023-08-20] MEDS: LACTATED RINGERS 1,000 ML IV SCH (11:44)
[2023-08-20] MEDS ORDERED: METOPROLOL TARTRATE 25 MG TABLET PO ONE (13:37)
[2023-08-20] MEDS ORDERED: FUROSEMIDE 20 MG/2 ML VIAL IV ONE (13:55)
[2023-08-20 14:19] LABS: ALT/SGPT 11 U/L (<40); AST/SGOT 38 U/L (<40); Albumin 3.3 gm/dL (3.2-5.2); Albumin/Globulin Ratio 0.9 (1.0-2.3); Alkaline Phosphatase 81 U/L (39-117); Bilirubin,Direct < 0.2 mg/dL (0-0.3); Bilirubin,Total 0.4 mg/dL (0.1-1.0); Blood Urea Nitrogen 16 mg/dL (8-23); Calcium 8.4 mg/dL (8.6-10.4); Carbon Dioxide 28 mmol/L (22-30); Chloride 93 mmol/L (96-108); Globulin 3.7 gm/dL (2.2-3.7); Glomerular Filtration Rate 86; Glucose 191 mg/dL (70-105); Lactate Dehydrogenase 178 U/L (135-225); Phosphorous 2.4 mg/dL (2.5-4.5); Triglycerides 192 mg/dL (<150); Uric Acid 6.6 mg/dL (2.5-8.0)
[2023-08-20 15:14] LABS: Appearance,Urine Clear (Clear); Bilirubin,Urine Negative (Negative); Color,Urine Yellow; Culture Indicated,Urine Yes; Glucose,Urine (UA) Negative (Negative); Ketones,Urine Negative (Negative); Leukocyte Esterase,Urine Negative /uL (Negative); Nitrate,Urine Negative (Negative); PH,Urine 5.5 (5.0-9.0); Protein,Urine 100 mg/dL (Negative); Urine Blood Negative ery/mcL (Negative); Urine Budding Yeast Many /hpf; Urine RBC 1 /hpf (0-3); Urine Squamous Epithelial Cell 2 /hpf (0-4); Urine WBC 2 /hpf (0-4); Urobilinogen,Urine Normal
[2023-08-20] MEDS: SENNOSIDES 1 TABLET PO SCH (20:42)
[2023-08-20] MEDS: ATORVASTATIN 20 MG TABLET PO SCH (20:42)
[2023-08-20] MEDS: CETIRIZINE 10 MG TABLET PO SCH (20:42)
[2023-08-21] MEDS: TAPENTADOL 50 MG PO PRN ×2 (01:23→06:41)
[2023-08-21] MEDS: 0.9 % SODIUM CHLORIDE 10 ML SYRINGE IV SCH (04:15)
[2023-08-21] MEDS: INSULIN LISPRO 1 UNIT/0.01 ML UNIT SQ SCH (06:43)
[2023-08-21 06:56] LABS: ALT/SGPT 13 U/L (<40); AST/SGOT 41 U/L (<40); Albumin/Globulin Ratio 0.9 (1.0-2.3); Alkaline Phosphatase 83 U/L (39-117); Bilirubin,Direct < 0.2 mg/dL (0-0.3); Bilirubin,Total 0.3 mg/dL (0.1-1.0); Blood Urea Nitrogen 16 mg/dL (8-23); Calcium 8.6 mg/dL (8.6-10.4); Carbon Dioxide 25 mmol/L (22-30); Chloride 99 mmol/L (96-108); Globulin 3.3 gm/dL (2.2-3.7); Glomerular Filtration Rate 95; Glucose 148 mg/dL (70-105); Lactate Dehydrogenase 168 U/L (135-225); Phosphorous 3.1 mg/dL (2.5-4.5); Triglycerides 102 mg/dL (<150); Uric Acid 6.5 mg/dL (2.5-8.0)
[2023-08-21] MEDS: CLOPIDOGREL 75 MG TABLET PO SCH (08:09)
[2023-08-21] MEDS: FOCUS FACTOR PO SCH (08:10)
[2023-08-21] MEDS: DOCUSATE SODIUM 100 MG CAPSULE PO SCH (08:10)
[2023-08-21] MEDS ORDERED: FUROSEMIDE 40 MG TABLET PO ONE (09:40)
== END 2023-08-21 12:38 | disposition home or self-care (01) | DRG 240 ==
LOC: EDSTATUS 11:00 → MEDSUR 11:01
PROVIDERS: ADMIT Orthopaedic Surgery; ATTEND Orthopaedic Surgery

== ENCOUNTER 2023-10-13 11:39 | Inpatient (IN) ==
[2023-10-13] MEDS ORDERED: ROCURONIUM 10 MG/ML ML IV ONE ×2 (11:59→14:00)
[2023-10-13] MEDS ORDERED: fentaNYL 100 MCG/2 ML VIAL ONE (11:59)
[2023-10-13] MEDS ORDERED: PROPOFOL 200 MG/20 ML VIAL IV ONE ×2 (11:59→13:52)
[2023-10-13] MEDS ORDERED: ONDANSETRON 4 MG/2 ML VIAL ONE (11:59)
[2023-10-13] MEDS ORDERED: HYDROmorphone 1 MG/ML SYRINGE ONE (13:35)
[2023-10-13] MEDS ORDERED: SUGAMMADEX SODIUM 200 MG/2 ML VIAL IV ONE (13:36)
[2023-10-13] MEDS ORDERED: IPRATROPIUM/ALBUTEROL 3 ML AMPUL.NEB NEB PRN (13:44)
[2023-10-13] MEDS ORDERED: NALOXONE HCL 0.4 MG/ML VIAL IV PRN (13:44)
[2023-10-13] MEDS ORDERED: ONDANSETRON 4 MG/2 ML VIAL IV PRN ×2 (13:44→14:15)
[2023-10-13] MEDS ORDERED: PHENYLephrine 1 MG/10 ML SYRINGE (ANEST) ONE (13:45)
[2023-10-13] MEDS: VANCOMYCIN 1 GM VIAL TOPICAL SCH (13:52)
[2023-10-13] MEDS ORDERED: BENZOCAINE/MENTHOL 1 LOZENGE PO PRN (14:15)
[2023-10-13] MEDS ORDERED: MAGNESIUM HYDROXIDE 30 ML ORAL.SUSP PO PRN (14:15)
[2023-10-13] MEDS ORDERED: FLEETS ADULT 1 DOSE ENEMA PR PRN (14:15)
[2023-10-13] MEDS ORDERED: POLYETHYLENE GLYCOL 3350 17 GM PACKET PO PRN (14:15)
[2023-10-13] MEDS ORDERED: BISACODYL 10 MG SUPP.RECT PR PRN (14:15)
[2023-10-13] MEDS ORDERED: DEXTROSE 50% 50 ML VIAL IV PRN (14:18)
[2023-10-13] MEDS ORDERED: DEXTROSE 31 GM ORAL.SUSP PO PRN (14:18)
[2023-10-13] MEDS: fentaNYL 100 MCG/2 ML VIAL IV PRN (14:46)
[2023-10-13] MEDS: METHOCARBAMOL 1,000 MG/10 ML VIAL IV PRN (14:51)
[2023-10-13] MEDS: LABETALOL HCL 20 MG/4 ML VIAL IV ONE (14:54)
[2023-10-13] MEDS: HYDROmorphone 0.5 MG/0.5 ML SYRINGE IV PRN (15:23)
[2023-10-13] MEDS ORDERED: VANCOMYCIN PER PHARMACY IV SCH (15:56)
[2023-10-13] MEDS: ceFAZolin 1 GM VIAL IV SCH (16:04)
[2023-10-13] MEDS: LACTATED RINGERS 1,000 ML IV SCH (16:06)
[2023-10-13] MEDS: oxyCODONE IR 5 MG TABLET PO PRN (16:20)
[2023-10-13] MEDS: INSULIN LISPRO 1 UNIT/0.01 ML UNIT SQ SCH (16:21)
[2023-10-13] MEDS: VANCOMYCIN 1,500 MG in 0.9 % SODIUM CHLORIDE 500 ML IV SCH (18:07)
[2023-10-13] MEDS: CEFEPIME 2 GM VIAL IV SCH (18:07)
[2023-10-13 18:22] LABS: Glomerular Filtration Rate 90
[2023-10-13] MEDS: GABAPENTIN 300 MG CAPSULE PO SCH (20:52)
[2023-10-13] MEDS: SENNOSIDES 1 TABLET PO SCH (20:52)
[2023-10-13] MEDS: ATORVASTATIN 20 MG TABLET PO SCH (20:53)
[2023-10-13] MEDS: CETIRIZINE 10 MG TABLET PO SCH (20:53)
[2023-10-13] MEDS: TAPENTADOL 50 MG PO PRN (21:02)
[2023-10-13] MEDS: ACETAMINOPHEN 500 MG TABLET PO SCH (22:03)
[2023-10-13] MEDS: 0.9 % SODIUM CHLORIDE 10 ML SYRINGE IV SCH (22:06)
[2023-10-14] MEDS: CLOPIDOGREL 75 MG TABLET PO SCH (08:08)
[2023-10-14] MEDS: ASCORBIC ACID 500 MG TABLET PO SCH (08:08)
[2023-10-14] MEDS: DOCUSATE SODIUM 100 MG CAPSULE PO SCH (10:24)
[2023-10-15] MEDS: CLOPIDOGREL 75 MG TABLET PO SCH (07:58)
[2023-10-15 09:11] LABS: Blood Urea Nitrogen 15 mg/dL (8-23); C-Reactive Protein 7.35 mg/dL (0.03-0.80); Calcium 8.9 mg/dL (8.6-10.4); Carbon Dioxide 26 mmol/L (22-30); Chloride 102 mmol/L (96-108); Glomerular Filtration Rate 90; Glucose 134 mg/dL (70-105)
[2023-10-15] MEDS ORDERED: 0.9 % SODIUM CHLORIDE 10 ML SYRINGE IV PRN (12:56)
[2023-10-15] MEDS: ASPIRIN 81 MG TAB.CHEW CHEWED SCH (20:56)
[2023-10-15] MEDS: 0.9 % SODIUM CHLORIDE 10 ML SYRINGE IV SCH (21:09)
[2023-10-16 06:57] LABS: Vancomycin,Random 13.5 ug/mL
[2023-10-16 07:29] LABS: Basophils # (Auto) 0.05 K/mcL (0.00-0.30); Basophils % (Auto) 0.5 % (0.0-2.0); Eosinophils # (Auto) 0.99 K/mcL (0.00-0.70); Eosinophils % (Auto) 9.4 % (0.0-7.0); Hematocrit 35.7 % (40.1-51.0); Hemoglobin 11.3 g/dL (13.7-17.5); Lymphocytes # (Auto) 1.86 K/mcL (1.50-4.80); Lymphocytes % (Auto) 17.7 % (15.5-49.0); Mean Corpuscular HGB Conc 31.7 g/dL (31.0-36.0); Mean Platelet Volume 9.4 fL (8.8-12.5); Monocytes # (Auto) 0.91 K/mcL (0.10-0.90); Monocytes % (Auto) 8.7 % (1.0-12.0); Neutrophils % (Auto) 63.5 % (38.0-78.0); Platelet Count 327 K/mcL (140-440); Red Cell Distribution Width 13.1 % (11.5-14.5); WBC 10.5 K/mcL (4.5-11.0)
[2023-10-16 08:23] LABS: ALT/SGPT 24 U/L (<40); AST/SGOT 34 U/L (<40); Albumin 3.3 gm/dL (3.2-5.2); Alkaline Phosphatase 72 U/L (39-117); Bilirubin,Total 0.2 mg/dL (0.1-1.0); Blood Urea Nitrogen 18 mg/dL (8-23); Calcium 8.9 mg/dL (8.6-10.4); Carbon Dioxide 27 mmol/L (22-30); Chloride 102 mmol/L (96-108); Globulin 3.2 gm/dL (2.2-3.7); Glomerular Filtration Rate 90; Glucose 169 mg/dL (70-105)
[2023-10-16] MEDS: VANCOMYCIN 1,250 MG in 0.9 % SODIUM CHLORIDE 500 ML IV SCH (09:32)
[2023-10-17] MEDS: VANCOMYCIN 1,000 MG in 0.9 % SODIUM CHLORIDE 250 ML IV SCH (11:05)
== END 2023-10-17 16:30 | disposition home or self-care (01) | DRG 464 ==
LOC: MEDSUR 11:39
PROVIDERS: ADMIT Orthopaedic Surgery; ATTEND Orthopaedic Surgery

== ENCOUNTER 2023-12-06 12:29 | Inpatient (IN) ==
[2023-12-06] MEDS ORDERED: PROPOFOL 200 MG/20 ML VIAL IV ONE (17:01)
[2023-12-06] MEDS ORDERED: fentaNYL 100 MCG/2 ML VIAL ONE (17:03)
[2023-12-06] MEDS ORDERED: ROCURONIUM 10 MG/ML ML IV ONE (17:03)
[2023-12-06] MEDS ORDERED: SUGAMMADEX SODIUM 200 MG/2 ML VIAL IV ONE (17:50)
[2023-12-06] MEDS: ceFAZolin 2 GM in DEXTROSE 5% IN WATER 50 ML IV SCH (18:15)
[2023-12-06] MEDS ORDERED: PHENYLephrine 1 MG/10 ML SYRINGE (ANEST) ONE (18:26)
[2023-12-06] MEDS ORDERED: TRANEXAMIC ACID 1,000 MG/10 ML VIAL ONE (18:40)
[2023-12-06] MEDS ORDERED: ONDANSETRON 4 MG/2 ML VIAL ONE (18:46)
[2023-12-06] MEDS ORDERED: DEXAMETHASONE 10 MG/ML VIAL ONE (18:46)
[2023-12-06] MEDS ORDERED: HYDROmorphone 1 MG/ML SYRINGE ONE ×2 (18:48→19:23)
[2023-12-06] MEDS ORDERED: MAGNESIUM SULFATE 2 GM/50 ML BAG IV ONE (18:58)
[2023-12-06] MEDS: HYDROGEN PEROXIDE 473 ML SOLUTION TOPICAL ONE (19:00)
[2023-12-06] MEDS: VANCOMYCIN 1 GM VIAL TOPICAL SCH (19:01)
[2023-12-06] MEDS ORDERED: ONDANSETRON 4 MG/2 ML VIAL IV PRN ×2 (19:03→19:51)
[2023-12-06] MEDS ORDERED: fentaNYL 100 MCG/2 ML VIAL IV PRN (19:03)
[2023-12-06] MEDS ORDERED: IPRATROPIUM/ALBUTEROL 3 ML AMPUL.NEB NEB PRN (19:03)
[2023-12-06] MEDS ORDERED: HYDROGEN PEROXIDE 473 ML SOLUTION TOPICAL PRN (19:06)
[2023-12-06] MEDS ORDERED: DEXMEDETOMIDINE HCL 200 MCG/2 ML VIAL ONE (19:25)
[2023-12-06] MEDS ORDERED: TAPENTADOL 50 MG PO PRN (19:47)
[2023-12-06] MEDS ORDERED: MAGNESIUM HYDROXIDE 30 ML ORAL.SUSP PO PRN (19:51)
[2023-12-06] MEDS ORDERED: DEXTROSE 31 GM ORAL.SUSP PO PRN (19:51)
[2023-12-06] MEDS ORDERED: POLYETHYLENE GLYCOL 3350 17 GM PACKET PO PRN (19:51)
[2023-12-06] MEDS ORDERED: FLEETS ADULT 1 DOSE ENEMA PR PRN (19:51)
[2023-12-06] MEDS ORDERED: DEXTROSE 50% 50 ML VIAL IV PRN (19:51)
[2023-12-06] MEDS ORDERED: BISACODYL 10 MG SUPP.RECT PR PRN (19:51)
[2023-12-06] MEDS ORDERED: BENZOCAINE/MENTHOL 1 LOZENGE PO PRN (19:51)
[2023-12-06] MEDS ORDERED: TAPENTADOL PO PRN (19:58)
[2023-12-06] MEDS: TRANEXAMIC ACID 1,000 MG/10 ML VIAL IV ONE (20:07)
[2023-12-06] MEDS: TRANEXAMIC ACID 1,000 MG/10 ML VIAL ONE (20:10)
[2023-12-06] MEDS: ACETAMINOPHEN 1,000 MG/100 ML BAG IV ONE (20:13)
[2023-12-06] MEDS ORDERED: KETOROLAC 30 MG/ML VIAL ONE (20:21)
[2023-12-06] MEDS: KETOROLAC 15 MG/ML VIAL IV ONE (20:23)
[2023-12-06] MEDS ORDERED: oxyCODONE IR 5 MG TABLET PO PRN (20:25)
[2023-12-06] MEDS: METHOCARBAMOL 1,000 MG/10 ML VIAL IV ONE (20:32)
[2023-12-06] MEDS: LACTATED RINGERS 1,000 ML IV SCH ×2 (20:59→21:11)
[2023-12-06] MEDS ORDERED: ATORVASTATIN 20 MG TABLET PO SCH (21:00)
[2023-12-06] MEDS: METHOCARBAMOL 1,000 MG/10 ML VIAL ONE (21:02)
[2023-12-06] MEDS: ACETAMINOPHEN 500 MG TABLET PO SCH (21:13)
[2023-12-06] MEDS: ASPIRIN 81 MG TAB.CHEW PO SCH (21:13)
[2023-12-06] MEDS: SENNOSIDES 1 TABLET PO SCH (21:13)
[2023-12-06] MEDS: 0.9 % SODIUM CHLORIDE 10 ML SYRINGE IV SCH (21:14)
[2023-12-06] MEDS: DAPTOmycin 500 MG VIAL IV SCH (21:22)
[2023-12-06] MEDS: INSULIN LISPRO 1 UNIT/0.01 ML UNIT SQ SCH (21:27)
[2023-12-07] MEDS: HYDROmorphone 1 MG/ML SYRINGE IV PRN (00:01)
[2023-12-07] MEDS: ceFAZolin 1 GM VIAL IV SCH (03:21)
[2023-12-07] MEDS: METHOCARBAMOL 500 MG TABLET PO PRN (07:28)
[2023-12-07] MEDS: cefTRIAXone 2 GM in DEXTROSE 5% IN WATER 50 ML IV SCH (08:51)
[2023-12-07] MEDS: DOCUSATE SODIUM 100 MG CAPSULE PO SCH (08:57)
== END 2023-12-07 12:09 | disposition home or self-care (01) | DRG 857 ==
LOC: MEDSUR 12:29
PROVIDERS: ADMIT Orthopaedic Surgery; ATTEND Orthopaedic Surgery